=== PATIENT | female | born 1940 | race Caucasian/White ===

== ENCOUNTER 2022-01-23 08:11 | Inpatient (IN) ==
--- NOTE | 2021-12-25 15:52 | PAT Medication Instructions ---
Medication Instructions Date of Service December 25, 2021 Home Medications acetaminophen 650 mg tablet,extended release (Tylenol Arthritis Pain) 650 mg PO Q8H PRN mecobalamin (vitamin B12) 1,000 mcg chewable tablet 1,000 mcg PO UD tafluprost (PF) 0.0015 % eye drops in a dropperette (Zioptan (PF)) 1 drp ophthalmic (eye) HS aspirin 325 mg tablet 325 mg PO UD PRN biotin 1 mg tablet 1 mg PO QAM calcium 600 mg capsule 1,200 mg PO BID ASK your prescriber and surgeon aspirin 325 mg tablet 325 mg PO UD PRN STOP taking 2 weeks before surgery biotin 1 mg tablet 1 mg PO QAM DO NOT take the morning of surgery mecobalamin (vitamin B12) 1,000 mcg chewable tablet 1,000 mcg PO UD calcium 600 mg capsule 1,200 mg PO BID Take morning of surgery With a small sip of water, OTHERWISE NOTHING TO EAT OR DRINK AFTER MIDNIGHT: acetaminophen 650 mg tablet,extended release (Tylenol Arthritis Pain) 650 mg PO Q8H PRN(if needed) Take evening before surgery acetaminophen 650 mg tablet,extended release (Tylenol Arthritis Pain) 650 mg PO Q8H PRN(if needed) tafluprost (PF) 0.0015 % eye drops in a dropperette (Zioptan (PF)) 1 drp ophthalmic (eye) HS calcium 600 mg capsule 1,200 mg PO BID Other Notes If you have any questions please call us at [phone] or [phone] or [phone] or [phone]
--- NOTE | 2022-01-01 09:25 | Anesthesiology Consultation ---
Date of Service January 01, 2022 Assessment & Plan (1) Encounter for pre-operative examination: - COVID screening: Per assessment on 01/01: No known COVID-19 positive contacts or current COVID-19 related symptoms. Travel screen negative. Patient vaccinated. At surgeon discretion if preop Covid testing being done. - S/P open treatment humerus shaft with plate and screws, debridement skin (07/25/2021): Glidescope 3, ETT 7.0 at [facility] (records scanned into eOriginal). "No complications documented" - Abnormal Echo: Echo done 07/25/2021 during [facility] admission after fall. Per echo, LVEF 45-49% with large sized apical, septal, anterior septal, and anterior wall motion abnormality with hypokinesis of the segments.Per extensive review of [facility] records, does not appear cardiac evaluation done in regards to echo findings. Patient scheduled for preop cardiology evaluation 01/04 at [facility]. Chart Review Chart Review: Patient seen in Pre Admission Testing Teaching & Discussion Pre-Anesthesia Teaching/Discussion Notes: Instructed NPO after midnight before surgery,except medications with 15 cc of water. Medication instructions provided according to the PAT guidelines. History Surgery Operation Date: 01/23/22 07:30 Proposed Procedures p Robotic Laparoscopic Assisted Partial Nephrectomy - Right - Ranjeet Reyes MD Height/Weight Height: 4 ft 10 in Weight: 48.9 kg Allergies Allergy/AdvReac Type Severity Reaction Status Date / Time Iodinated Contrast Media Allergy Unknown hives Verified 12/25/21 12:19 povidone-iodine Allergy Unknown Rash Verified 12/25/21 12:19 [From Betadine] soap [From Betadine] Allergy Unknown Rash Verified 12/25/21 12:19 paper tape Allergy Unknown Rash Uncoded 12/25/21 12:19 Medications Home Medications Medication Instructions Recorded Confirmed Last Taken acetaminophen 650 mg 650 mg PO Q8H PRN Pain 11/23/20 12/25/21 Unknown tablet,extended release (Tylenol Arthritis Pain) mecobalamin (vitamin B12) 1,000 1,000 mcg PO UD 11/23/20 12/25/21 Unknown mcg chewable tablet tafluprost (PF) 0.0015 % eye drops 1 drp ophthalmic (eye) HS 11/23/20 12/25/21 Unknown in a dropperette (Zioptan (PF)) aspirin 325 mg tablet 325 mg PO UD PRN Pain 07/04/21 12/25/21 Unknown biotin 1 mg tablet 1 mg PO QAM 07/04/21 12/25/21 Unknown calcium 600 mg capsule 1,200 mg PO BID 12/25/21 12/25/21 Unknown Past Medical History Medical History Glaucoma History of concussion After fall 07/2021 - residual memory issues, continued improvement Sustained C5 osteophyte fracture vs teardrop fracture - medically managed, weaned off cervical collar per [facility] neurosurgery Osteoarthritis Poor historian Renal mass Reason for upcoming surgery Exercise / Class Metabolic Activity II 4-5 Yardwork/Stairs/Walk up hill Past Family History Family History Other Memory loss No family history of adverse response to anesthesia Past Surgical History Surgical History H/O tubal ligation History of colonoscopy History of shoulder surgery Left (metal implant in place)- ~ 2002 History of surgery on arm Right arm fracture repair (07/2021) History of wisdom tooth extraction Hx of hemorrhoidectomy Hx of tonsillectomy Past Anesthesia History No Hx of Anesthesia Complications and No Family Hx of Anesthesia Complications History of PONV No Hx of PONV and Hx of Motion Sickness Social History Smoking Status: Former smoker tobacco type: cigarettes Do You Dip or Chew Tobacco: No Smoking End Date: Quit several years ago Hx Alcohol Use: No Hx Substance Use: No substance use type: does not use Review of Systems Patient denies chest pain, shortness of breath, dyspnea on exertion, fever, chills, cough, wheezing, palpitations. Physical Exam Vital Signs VITALS BP 109/72 P 70 TEMP 97.8 SP02 96%RA RESP 18 PHYSICAL Decreased cervical extension range of motion. Full TMJ range of motion. TMD 3 finger breaths Mallampati Score 1 Dentition: several missing sides Lungs: clear throughout to auscultation Cardiac: regular rate and rhythm, no murmurs noted Spine: normal Carotid arteries: negative bruit Extremities: no edema Lab Results Anesthesia Preop Results Results Anesthesia Widget: WBC 3.93 K/ul (4.8-10.8) L 01/01/22 Hgb 11.7 g/dl (12.0-16.0) L 01/01/22 Hct 36.4 % (34.1-44.9) 01/01/22 Plt 254 K/uL (130-400) 01/01/22 Na 139 mmol/L (136-145) 01/01/22 K 3.8 mmol/L (3.5-5.1) 01/01/22 Cl 105 mmol/L (98-107) 01/01/22 CO2 27 mmol/L (21-32) 01/01/22 BUN 14 mg/dl (6-23) 01/01/22 Creat 0.84 mg/dl (0.6-1.2) 01/01/22 Glucose Level 81 mg/dl (70-99(Fasting)) 01/01/22 Urine Color Yellow 01/01/22 Urine Appearance Clear (Clear) 01/01/22 Urine pH 6.5 (4.5-7.5) 01/01/22 Urine Specific [place] 1.010 (1.000-1.030) 01/01/22 Urine Protein Negative (Negative) 01/01/22 Urine Glucose (UA) Negative (Negative) 01/01/22 Urine Ketones Negative (Negative) 01/01/22 Urine Blood Negative (Negative) 01/01/22 Urine Nitrite Negative (Negative) 01/01/22 Urine Bilirubin Negative (Negative) 01/01/22 Urine Urobilinogen Negative (Negative) 01/01/22 Urine Leukocyte Esterase Trace (Negative) H 01/01/22 Urine WBC (Auto) 1-5 /hpf (0-5) 01/01/22 Urine RBC (Auto) 0-4 /hpf (0-4) 01/01/22 Urine Hyaline Casts (Auto) 0 /lpf (0-5) 01/01/22 Urine Epithelial Cells (Auto) 0-5 /lpf (0-5) 01/01/22 Urine Bacteria (Auto) Negative (Negative) 01/01/22 Blood Type A Positive 01/01/22 Antibody Screen NEGATIVE 01/01/22 Testing Laboratory Results Low WBC- will forward preop labs to PCP for continuity of care* Electrocardiogram Date: 11/14/21 NSR at 64bpm. NS STA. Chest X-Ray Date: 07/06/21 FINDINGS: The cardiomediastinal and hilar silhouettes are within normal limits. Thumb millimeter radiodense focus suggestive of a calcified granuloma projects over the left midlung and anterior left fourth rib on the frontal view. Additionally, there is an ill-defined 1.4 cm nodular density of the left midlung seen best on the PA view. No pneumothorax, pleural effusion, airspace consolidation or overt pulmonary edema. Degenerative changes of the right shoulder and spine. Left shoulder arthroplasty. Unchanged superior endplate compression deformity of the lumbar segment, likely L3. IMPRESSION: No acute processes of the chest. Subcentimeter calcified granuloma of the left midlung with additional left lung indeterminate granuloma versus nodule measuring 1.4 cm. Correlate with prior imaging. *No acute process on preop CXR. Report forwarded to PCP to follow-up with calcif ied granuloma vs. nodule at their discretion. Chest CT done 07/24/21 noted Lobulated nodule in the upper lobe of the left lung. PCP monitoring* Echocardiogram Date: 07/25/21 LVEF 45-49%. Large sized apical, septal, anterior septal, and anterior wall motion abnormality with hypokinesis of the segments. Mildly increased concentric LV wall thickness. Mild MR. Grade 1 diastolic dysfunction. Cervical Spine Date: 09/06/21 C-spine xray Severe degenerative changes. Flexion and extension views show no evidence of abnormal motion. Other Testing CT Head/brain (07/24/21) Acute mildly displaced flexion teardrop fracture of the anterior inferior endplate of C5. Small right frontal scalp contusion, without evidence of intracranial hemorrhage or calvarial fracture. CT Chest (07/24/21) Acute, comminuted, displaced fracture of the right humeral shaft. No additional traumatic injury is seen in the chest, abdomen, and pelvis. Right renal mass, compatible with known malignancy. Lobulated nodule in the upper lobe of the left lung. Recommend correlation with prior imaging to assess stability. Indeterminate left adrenal nodule. Recommend correlation with prior imaging. COVID-19 Risk Screen Screening Information COVID-19 Screen Date: 01/01/22 Exposure 21 Days Family/Household +COVID Last 21 Days: No Exposure 10 Days Any COVID Exposure Last 10 Days: No Symptoms Last 10 Days Experienced COVID Sx Last 10 Days: No + COVID 0-90 Days COVID + in Last 0-90 Days: No
[~2022-01-23 08:11] MED LIST: DEXAMETHASONE SOD INJ 4 MG/ML VIAL ONE; GLYCOPYRROLATE 0.2 MG/ML VIAL ONE; LR 15ML/HR IV SCH; MIDAZOLAM HCL 1 MG/ML 2ML VIAL ONE; NEOSTIGMINE METHYLSULFATE 1 MG/ML 10ML VIAL ONE; ONDANSETRON INJ 2 MG/ML 2 ML VIAL ONE; PROPOFOL IV EMULSION 10 MG/ML 20 ML VIAL IV ONE; ceFAZolin 2000MG 2,000 MG/15 ML SYR IV SCH; fentaNYL citrate 100 MCG/2 ML VIAL ONE
--- NOTE | 2022-01-23 09:41 | History & Physical Report ---
Date of Service January 23, 2022 Assessment & Plan (1) Renal mass: Plan: Right, lower pole exophytic but solid and enhancing renal mass highly concerning for renal cell carcinoma She has presented today for definitive therapy in the form of surgery We will attempt partial nephrectomy but convert to radical nephrectomy if deemed unsafe Risks, benefits, expectations reviewed History of Present Illness Primary Care Provider: Domingo Stern MD 81-year-old female with a right lower pole, medial, and solid/enhancing renal mass concerning for renal cell carcinoma Presenting today for surgical removal Allergies Allergy/AdvReac Type Severity Reaction Status Date / Time Iodinated Contrast Media Allergy Unknown hives Verified 01/23/22 09:13 povidone-iodine Allergy Unknown Rash Verified 01/23/22 09:13 [From Betadine] soap [From Betadine] Allergy Unknown Rash Verified 01/23/22 09:13 Home Medications Medication Instructions Recorded Confirmed Type acetaminophen 650 mg 650 mg PO Q8H PRN Pain 11/23/20 01/23/22 History tablet,extended release (Tylenol Arthritis Pain) mecobalamin (vitamin B12) 1,000 1,000 mcg PO UD 11/23/20 01/23/22 History mcg chewable tablet tafluprost (PF) 0.0015 % eye drops 1 drp ophthalmic (eye) HS 11/23/20 01/23/22 History in a dropperette (Zioptan (PF)) aspirin 325 mg tablet 325 mg PO UD PRN Pain 07/04/21 01/23/22 History biotin 1 mg tablet 1 mg PO QAM 07/04/21 01/23/22 History calcium 600 mg capsule 1,200 mg PO BID 12/25/21 01/23/22 History Past Med/Surg History Medical History (Updated 01/23/22 @ 09:41 by Ranjeet Reyes MD) Falls Glaucoma History of concussion After fall 07/2021 - residual memory issues, continued improvement Sustained C5 osteophyte fracture vs teardrop fracture - medically managed, weaned off cervical collar per [facility] neurosurgery Osteoarthritis Poor historian Renal mass Reason for upcoming surgery Surgical History H/O tubal ligation History of colonoscopy History of shoulder surgery Left (metal implant in place)- ~ 2002 History of surgery on arm Right arm fracture repair (07/2021) History of wisdom tooth extraction Hx of hemorrhoidectomy Hx of tonsillectomy Family History Other Memory loss No family history of adverse response to anesthesia Social History Smoking Status: Former smoker Smoking End Date: Quit several years ago; Second Hand Exposure: No; Do You Dip or Chew Tobacco: No; Hx Alcohol Use: No Hx Substance Use: No Preferred Language: Thai Communication Ability: Effective Communication Ability Comment: SEE PAT COMMUNICATION NOTES Cash Management Officer Required: No Beliefs That Will Affect Care: None marital status: / Current Living Situation: Other Current Living Situation Comment: FRIEND, YAMILETH current occupational status: retired Other Information That Helps Us Care for You: No Feels Safe at Home: Yes Assistive Devices: Glasses Physical Exam Constitutional: well developed and well nourished Neck: neck nontender Respiratory: normal respiratory effort; no respiratory distress and does not use accessory muscles Cardiovascular: Rate/Rhythm: regular rate Vessels: radial pulses present Extremities: no edema Gastrointestinal (Abdomen): Inspection/Auscultation: abdomen normal to inspection Percussion/Palpation: abdomen soft; abdomen nontender and no guarding Musculoskeletal: Head/Neck/Chest: normocephalic and head atraumatic Extremities: extremities normal to inspection Skin: no rashes and no lesions Trauma: no evidence of skin trauma Neurologic: awake; not obtunded Speech / Cognition: normal speech Motor/Sensory: no tremor Psychiatric: Orientation: alert and oriented x 3 Lymphatic: no lymphadenopathy Results & Data ([facility]) Vital Signs (Past 12 Hours) Vital Signs Temp Pulse Resp BP Pulse Ox O2 Del Method 01/23/22 09:14 36.4 C L 63 18 129/59 L 96 Room Air
[2022-01-23] MEDS ORDERED: BUPIVACAINE 0.5 % 5 MG/1 ML MPF 30ML VIAL ONE (09:55)
[2022-01-23] MEDS ORDERED: fentaNYL citrate 100 MCG/2 ML VIAL ONE (11:03)
[2022-01-23] MEDS ORDERED: TISSEEL FIBRIN SEALANT 10ML TOP ONE (11:23)
[2022-01-23] MEDS ORDERED: FLOSEAL HEMOSTATIC MATRIX 10ML TOP ONE (11:23)
[2022-01-23] MEDS ORDERED: SURGICEL ABSORB HEMOSTAT 2IN X 14IN TOP ONE (11:23)
--- NOTE | 2022-01-23 12:38 | Operative Report ---
PG Post Operative Report Pre & Post Diagnosis Operation Date: 01/23/22 10:50 Pre-Op Diagnosis: Right Renal Mass Post-Op Diagnosis: Right Renal Mass I identified the patient and participated in the time-out.: Yes Procedure Operation Date: 01/23/22 10:50 Actual Procedures p Robotic Assisted Laparoscopic Nephrectomy Right(Right) - Ranjeet Reyes MD Surgeon Rnajeet Reyes MD Printer Repair Technician Juvencio Wheat Estimated Blood Loss 25 Findings Consistent with Post-Op Diagnosis Specimens right kidney Description of Procedure Patient was identified in the preoperative holding area, appropriate informed consents reviewed and completed and she was transferred to the operating suite. On arrival she received appropriate preoperative antibiotics in the form of Ancef. General anesthesia was achieved and she was placed in the left side down right side up lateral decubitus position with the bed flexed. Following sterile prep and drape a Veress needle was passed on the right upper quadrant. Tentative port sites were marked and an 8 mm port with 5 mm lens was inserted into the anticipated location of the camera port. Inspection revealed a mildly cirrhotic liver but no significant adhesive disease. Subsequent port sites were marked and placed. I was able to place 4 robotic ports in linear fashion be ginning just under the costal margin and extending down into the right lower quadrant. A 5 mm subxiphoid port was placed as was a 12 mm infraumbilical port. Space was quite limited because of the patient's short stature. I was very cautious around her cirrhotic liver and she has a very large gallbladder. I was able to retract this utilizing one of the robotic arms. I was able to incise lateral to the colon and medialize the colon entirely off of the medial aspect of the kidney. The duodenum was not impacting the hilar structures. I was able to identify the ureter below the kidney and dissect between the ureter and the psoas muscle. I was able to elevate and dissect up towards the kidney. At that time the infraumbilical mass was visualized but felt that it was not safe to proceed with a partial nephrectomy because of some of the challenges of dissection. I elected to proceed with a radical nephrectomy at that time. After exposing both artery and vein they were stapled en bloc. I continued my dissection around the superior pole of the kidney and then ultimately the lateral pole. The ureter was clipped below the kidney and transected. The robot was disconnected. A right lower quadrant incision was expanded in the specimen extracted. Fascia was closed in 2 layers utilizing 0 Vicryl. The infraumbilical port was closed with 0 Vicryl. All skin incisions were closed with 4-0 Monocryl. All wounds were infiltrated with half percent Marcaine. Dermabond was placed over all the incisions. Juvencio Haque was present and assisting throughout the case as was Yuki hampton. I attest to the content of the Intraoperative Record and any orders documented therein. Any exceptions are noted below.
[2022-01-23 13:15] LABS: Basophils # (auto) 0.02 K/uL (0-0.2); Basophils % (auto) 0.4 %; Eosinophils # (auto) 0.04 K/uL (0-0.50); Eosinophils % (auto) 0.7 %; Hematocrit (blood only) 34.3 % (34.1-44.9); Immature Granulocytes # (auto) 0.03 K/uL (0.00-0.02); Immature Granulocytes % (auto) 0.6 %; Lymphocytes # (auto) 0.56 K/uL (1.2-3.4); Lymphocytes % (auto) 10.3 %; Mean Corpuscular Hemoglobin 29.3 pg (25.0-34.0); Mean Corpuscular Hgb Conc 32.1 g/dL (32.0-36.0); Mean Corpuscular Volume 91.2 fL (80.0-100.0); Mean Platelet Volume 9.2 fL (9.4-12.3); Monocytes # (auto) 0.35 K/uL (0.24-0.82); Monocytes % (auto) 6.4 %; Neutrophils # (auto) 4.43 K/uL (1.4-6.5); Neutrophils % (auto) 81.6 %; Platelet Count 221 K/uL (130-400); RDW Coefficient of Variation 13.7 % (11.5-14.5); Red Blood Count 3.76 M/uL (3.93-5.22); White Blood Count 5.43 K/ul (4.8-10.8)
[2022-01-23 13:48] LABS: BUN Creatinine Ratio 15.3 (10-20); Calcium 8.6 mg/dl (8.5-10.1); Creatinine Clr Calc Pharmacy 32.4 ml/min; Est GFR (African American) 73.4 ml/min; Est GFR (Non-African American) 63.4 ml/min
[2022-01-23] MEDS ORDERED: PROPOFOL IV EMULSION 10 MG/ML 20 ML VIAL IV ONE (14:30)
--- NOTE | 2022-01-23 14:50 | Communication Note ---
Date of Service: January 23, 2022 Pt. had been in PACU approx. 40 minutes. RN called and stated pt may be seizing.I observed the pt. making twitching movements with her face , and clutching movements with her hands. Pt had been H/D stable w/ no hypotension or hypoxia , as her SPO2% had been in the 90's. I had obtained an ABG around 1410,w/results: PH 6.95/PaCO2-111/PaO2-135/YTK366.3/Base Deficit--8/HgBO2 Sat%- 96; After ABG's obtained I decided to intubate pt . 100 mg propofol + 100 mg succinylcholine, using Glidescope # 3 , VC's visualized,# 7.0 ETT intubated w/o incident+ ETCO2;+ B/L BS;ETT taped at 21 cm santiago;RT was called and already present at bedside w/ mec. vent. DR Wren from ICU was called and he was at bedside. Case discussed and pt was transported to ICU.
[2022-01-23] MEDS ORDERED: NOREPINEPHRINE/D5W 4 MG/250 ML IV ONE (14:55)
[2022-01-23] MEDS ORDERED: MoRPHine SULFATE 2 MG/ML CARP IV PRN (15:00)
[2022-01-23] MEDS ORDERED: oxyCODONE HCL IR 5 MG TAB (IMMEDIATE RELEASE) PO PRN ×2 (15:00)
[2022-01-23] MEDS ORDERED: MoRPHine SULFATE 4 MG/ML 1 ML CARP\\VIAL IV PRN (15:00)
[2022-01-23] MEDS ORDERED: ACETAMINOPHEN 325 MG TAB PO PRN (15:00)
[2022-01-23] MEDS ORDERED: ONDANSETRON INJ 2 MG/ML 2 ML VIAL IV PRN (15:00)
[2022-01-23 15:12] LABS: iSTAT Art Bld Gas pCO2 Correct 74 mmHg (35-46); iSTAT Art Bld Gas pH Corrected 7.122 (7.35-7.45); iSTAT Arterial Blood Gas HCO3 24 meg/L (19-24); iSTAT Arterial Blood Gas pCO2 77 mmHg (35-46); iSTAT Arterial Blood Gas pH 7.11 (7.35-7.45); iSTAT Arterial Blood Gas pO2 116 mmHg (80-95); iSTAT Arterial Blood Gas pO2 C 110; iSTAT Carbon Dioxide 27 mmol/L (24-31); iSTAT FiO2 50 %; iSTAT Hematocrit 32 % (37-47); iSTAT Hemoglobin 10.9 g/dl (12.0-16.0); iSTAT Potassium 4.3 mmol/L (3.3-5.0); iSTAT Site Art Line; iSTAT Sodium 137 mmol/L (135-144)
--- NOTE | 2022-01-23 15:31 | Procedure Note ---
Procedure Note Date of Service January 23, 2022 Note CENTRAL LINE PROCEDURE NOTE: Procedure: Central Line Placement Provider: Gonsalo Wren MD Indication: Central Drug Administration, Poor Venous Access, Multiple Lab Draws Necessary, etc. Anesthesia: 3 mlLidocaine 1% Site: Initial attempt left subclavian, converted to right internal jugular due to inability to access vein Procedure was emergent. Consent was not able to be identified due to the patient being intubated on the ventilator. No family immediately available. A time-out was completed verifying correct patient, procedure, site, positioning, and implants(s) or special equipment if applicable. Patients bilateral clavicular areas and neck was cleansed and draped in the typical sterile fashion using Chloraprep. The superficial tissue was anesthetized using 3 mL of 1% lidocaine without epinephrine. Initially an attempt to access the subclavian vein on the left but we were unable to access the vein despite repositioning and may be secondary to anatomic disruption due to the patient's prior history of shoulder replacement. I performed an ultrasound on the internal jugular on the left side but the vein was extremely small and not appropriate for cannulization. We therefore shifted attention to the right internal jugular vein. This was a larger vessel with significant respiratory collapse indicating a hypovolemic state. The Internal Jugular vein was cannulated under direct ultrasound guidance using an introducer needle on a syringe. Good venous blood return was maintained prior to removal of syringe from introducer needle. Using Seldinger Technique, a guide wire was advanced through the introducer needle without resistance. The introducer needle was removed and ultrasound images were obtained of the guide wire within the Internal Jugular Vein. A small incision was made in penetrating fashion at the guide wire insertion site utilizing an 11 blade scalpel. The dilator was advanced to the vessel without resistance. The dilator was exchanged for the triple lumen catheter which was advanced into the vessel without resistance. The guide wire was removed intact from the catheter without issue. Claves were placed on each catheter tip with confirmation of good blood flow from each lumen. Each port was easily flushed with sterile saline. The catheter was placed at 20 cm and sut[address] in place. BioPatch was applied to the catheter and a sterile Tegaderm dressing was applied over the catheter with careful attention to sterility. Patient tolerated procedure well. No immediate complications were met. Post procedure x-ray pending Estimated blood loss: 5 mL. The patient tolerated the procedure well Coding CPT Codes Tubes, Drains, and Vasc Access - Tubes, Drains, and Vasc Access: [id number] Place catheter in vein superior or inferior vena cava ([id number]) [facility] Procedure Codes (Charges) Tubes, Drains, and Vasc Access Procedure 1: Tubes, Drains, and Vasc Access: [id number] Place catheter in vein superior or inferior vena cava
[2022-01-23] MEDS ORDERED: LACTATED RINGER'S 2,000 ML IV ONE (15:32)
[2022-01-23 15:34] LABS: iSTAT Arterial Blood Gas HCO3 24 meg/L (19-24); iSTAT Arterial Blood Gas pCO2 111 mmHg (35-46); iSTAT Arterial Blood Gas pH 6.95 (7.35-7.45); iSTAT Arterial Blood Gas pO2 135 mmHg (80-95); iSTAT Carbon Dioxide 28 mmol/L (24-31); iSTAT Hematocrit 38 % (37-47); iSTAT Hemoglobin 12.9 g/dl (12.0-16.0); iSTAT Potassium 4.9 mmol/L (3.3-5.0); iSTAT Sodium 140 mmol/L (135-144)
[2022-01-23] MEDS ORDERED: ICU Protocol for HYPERglycemia PRN (15:37)
[2022-01-23] MEDS ORDERED: STAT IV Infusion **Titration per Protocol STA (15:37)
[2022-01-23] MEDS ORDERED: PROPOFOL BOLUS FROM BAG IV PRN (15:37)
--- NOTE | 2022-01-23 15:38 | Critical Care Consultation ---
Date of Consultation January 23, 2022 Assessment & Plan (1) Hypercapnic respiratory failure: (2) Renal mass: (3) Encephalopathy: (4) Hypotension: Plan Impression: 81-year-old female with presumptive COPD although PFTs are not available to review admitted today for elective nephrectomy for exophytic renal mass. In the PACU the patient became obtunded and was found to have hypercarbic respiratory failure with questionable seizure activity necessitating intubation mechanical ventilation. She was hypotensive on arrival to the ICU necessitating pressors. Recommendations: 1. Neurologic: Encephalopathy likely secondary to hypercarbic respiratory failure. See comments below. The twitching activity noted by the PACU nurses could be explained by the elevated PCO2, nevertheless we will obtain a noncontrast CT of the head and EEG to exclude potential alternative etiologies. Hold on antiepileptic medications for now but will use propofol on an as-needed basis to keep the patient sedated. Analgesia per urology. 2. Cardiovascular: Hypotension: Suspect hypovolemia based on ultrasound appearance of the vein on insertion of central line. Continue replacement of effective circulating volume with crystalloid for now. Wean pressors as tolerated. Reviewed echocardiogram which showed preserved EF with concentric LVH and mild valvular abnormalities. Depending on clinical response, additional evaluation may be warranted. 3. Respiratory: Hypercarbic respiratory failure, unclear etiology. The patient may have had underlying CO2 retention at baseline, however CO2 levels on chemistry panels were routinely between 25 and 27 arguing against this. She may have had some residual effects from the anesthesia precipitating hypercarbia. For now we will continue mechanical ventilation with tidal volume target and 6 cc/kg ideal body weight and follow-up blood gas. We will use bronchodilators on an as-needed basis. Hold on steroids for now. Unclear if her hypercarbia was the primary presenting event or manifestation of other underlying potential neurological issues as noted above. 4. GI: We will keep n.p.o. for now. Await follow-up labs. If the patient has difficulty liberating from mechanical ventilator in the next 24 hours, consideration for enteric nutrition would be appropriate. PPI will be put in place for stress ulcer prophylaxis. 5. ID: No current issues from my standpoint. Defer to urology as to whether or not continued antibiotics postoperatively required for her nephrectomy. 6. Renal: Status post nephrectomy. Follow-up labs are pending. Patient had a normal creatinine preoperatively. Acid-base status addressed above and respirat ory. Will follow electrolytes and replete as needed. 7. Endocrine: Glycemic control per protocol. 8. Heme-onc: Await follow-up labs. DVT prophylaxis will be initiated with subcu heparin. Additional recommendations will be based on results of the patient's laboratory studies and additional evaluation. The patient is critically ill at this point time. A total of 82 minutes critical care time was spent in evaluation management stabilization of this patient exclusive of procedures. Thanks for the opportunity precipitate in the care of this patient. Feel free to contact us with questions. History of Present Illness Attending Physician: Ranjeet Reyes MD History of Present Illness Asked by anesthesia, medicine, and urology to assist in evaluation of this patient with hypercarbic respiratory failure, questionable seizure activity post nephrectomy. History is obtained from review the medical record. Patient is unable to provide any additional history as she is intubated on the ventilator. The patient is an 81-year-old female who was found to have a right lower pole exophytic mass concerning for renal cell carcinoma. She underwent radical nephrectomy today. Postoperatively, the patient was noted to have an altered sensorium and exhibits some shaking-like movements. Blood gas was obtained which demonstrated severe hypercarbic respiratory failure with a PCO2 of 111. She was reintubated by anesthesia. The patient was brought to the ICU. She was hypotensive. A central line was placed. Please refer to separate procedure notes. She was initiated on norepinephrine and administered additional small volume boluses. The patient according to her outpatient records at [facility] has a history of osteoporosis, prior tobacco abuse, glaucoma, stage III kidney disease, and recent admissions for lower GI bleed felt to be diverticular in nature as well as a fall with a teardrop C5 fracture. There was some concern about potential cardiomyopathy however the patient was seen in the cardiology clinic at [facility]. Follow-up echocardiogram showed an EF of 55 to 60% with concentric LV hypertrophy. Right ventricular systolic function was normal. Moderate MR and mild TR were noted. Allergies Allergy/AdvReac Type Severity Reaction Status Date / Time Iodinated Contrast Media Allergy Unknown hives Verified 01/23/22 09:13 povidone-iodine Allergy Unknown Rash Verified 01/23/22 09:13 [From Betadine] soap [From Betadine] Allergy Unknown Rash Verified 01/23/22 09:13 Home Medications Medication Instructions Recorded Confirmed Type acetaminophen 650 mg 650 mg PO Q8H PRN Pain 11/23/20 01/23/22 History tablet,extended release (Tylenol Arthritis Pain) mecobalamin (vitamin B12) 1,000 1,000 mcg PO UD 11/23/20 01/23/22 History mcg chewable tablet tafluprost (PF) 0.0015 % eye drops 1 drp ophthalmic (eye) HS 11/23/20 01/23/22 History in a dropperette (Zioptan (PF)) aspirin 325 mg tablet 325 mg PO UD PRN Pain 07/04/21 01/23/22 History biotin 1 mg tablet 1 mg PO QAM 07/04/21 01/23/22 History calcium 600 mg capsule 1,200 mg PO BID 12/25/21 01/23/22 History Patient History Medical History (Updated 01/23/22 @ 15:43 by Gonsalo Wren MD) Falls Glaucoma History of concussion After fall 07/2021 - residual memory issues, continued improvement Sustained C5 osteophyte fracture vs teardrop fracture - medically managed, weaned off cervical collar per [facility] neurosurgery Osteoarthritis Poor historian Renal mass Reason for upcoming surgery Surgical History H/O tubal ligation History of colonoscopy History of shoulder surgery Left (metal implant in place)- ~ 2002 History of surgery on arm Right arm fracture repair (07/2021) History of wisdom tooth extraction Hx of hemorrhoidectomy Hx of tonsillectomy Family History Other Memory loss No family history of adverse response to anesthesia Social History Smoking Status: Former smoker Smoking End Date: Quit several years ago; Second Hand Exposure: No; Do You Dip or Chew Tobacco: No; Hx Alcohol Use: No Hx Substance Use: No Preferred Language: Bahamian Communication Ability: Effective Communication Ability Comment: SEE PAT COMMUNICATION NOTES Quality Assurance Intern Required: No Beliefs That Will Affect Care: None marital status: / Current Living Situation: Other Current Living Situation Comment: FRIEND, BILL current occupational status: retired Other Information That Helps Us Care for You: No Feels Safe at Home: Yes Assistive Devices: Glasses Review of Systems Review of Systems: Unobtainable due to endotracheal tube Physical Exam Constitutional: + thin and + mechanically ventilated Neck: trachea midline, no thyromegaly Respiratory: Breath sounds are diminished bilaterally. Cardiovascular: RRR, no murmur, no edema Gastrointestinal (Abdomen): normal bowel sounds, soft, nontender, no hepat osplenomegaly Musculoskeletal: Extremities: extremities normal to inspection Skin: no rashes, warm and dry Neurologic: Nonfocal exam Lymphatic: no cervical lymphadenopathy Results & Data Results & Data ([facility]) Vital Signs (Past 12 Hours) Vital Signs Temp Pulse Resp BP BP Pulse Ox O2 Del Method 01/23/22 14:40 123 H 23 69/48 L 98/56 L 97 Mechanical Vent 01/23/22 14:30 124 H 20 75/47 L 103/52 L 100 Mechanical Vent 01/23/22 14:20 134 H 27 H 110/60 141/71 H 100 Mechanical Vent, Non- rebreather 01/23/22 14:10 36.3 C L 144 H 38 H 115/61 137/91 96 Non-rebreather 01/23/22 13:50 130 H 38 H 133/71 130/110 H 100 Oxymask 01/23/22 13:40 121 H 44 H 116/54 L 102/59 L 100 Oxymask 01/23/22 13:30 108 H 36 H 113/55 L 149/56 H 100 Oxymask 01/23/22 13:20 98 H 24 135/72 98 Oxymask 01/23/22 14:00 147 H 55 H 129/39 L 96/50 L 78 L Non-rebreather 01/23/22 13:20 98 H 24 135/72 98 Oxymask 01/23/22 13:10 94 H 24 115/67 99 Oxymask 01/23/22 13:00 96 H 20 110/60 98 Oxymask 01/23/22 12:50 97 H 18 92/87 L 99 Oxymask 01/23/22 12:40 36.0 C L 105 H 12 97/66 L 98 Oxymask 01/23/22 09:14 36.4 C L 63 18 129/59 L 96 Room Air O2 Flow Rate 01/23/22 14:40 15 01/23/22 14:30 01/23/22 14:20 01/23/22 14:10 15 01/23/22 13:50 15 01/23/22 13:40 15 01/23/22 13:30 15 01/23/22 13:20 15 01/23/22 14:00 15 01/23/22 13:20 15 01/23/22 13:10 7 01/23/22 13:00 7 01/23/22 12:50 7 01/23/22 12:40 7 01/23/22 09:14 Critical Care Results & Data Vital Signs (Past 12 Hours) Vital Signs Temp Pulse Resp BP BP Pulse Ox O2 Del Method 01/23/22 14:40 123 H 23 69/48 L 98/56 L 97 Mechanical Vent 01/23/22 14:30 124 H 20 75/47 L 103/52 L 100 Mechanical Vent 01/23/22 14:20 134 H 27 H 110/60 141/71 H 100 Mechanical Vent, Non- rebreather 01/23/22 14:10 36.3 C L 144 H 38 H 115/61 137/91 96 Non-rebreather 01/23/22 13:50 130 H 38 H 133/71 130/110 H 100 Oxymask 01/23/22 13:40 121 H 44 H 116/54 L 102/59 L 100 Oxymask 01/23/22 13:30 108 H 36 H 113/55 L 149/56 H 100 Oxymask 01/23/22 13:20 98 H 24 135/72 98 Oxymask 01/23/22 14:00 147 H 55 H 129/39 L 96/50 L 78 L Non-rebreather 01/23/22 13:20 98 H 24 135/72 98 Oxymask 01/23/22 13:10 94 H 24 115/67 99 Oxymask 01/23/22 13:00 96 H 20 110/60 98 Oxymask 01/23/22 12:50 97 H 18 92/87 L 99 Oxymask 01/23/22 12:40 36.0 C L 105 H 12 97/66 L 98 Oxymask 01/23/22 09:14 36.4 C L 63 18 129/59 L 96 Room Air O2 Flow Rate 01/23/22 14:40 15 01/23/22 14:30 01/23/22 14:20 01/23/22 14:10 15 01/23/22 13:50 15 01/23/22 13:40 15 01/23/22 13:30 15 01/23/22 13:20 15 01/23/22 14:00 15 01/23/22 13:20 15 01/23/22 13:10 7 01/23/22 13:00 7 01/23/22 12:50 7 01/23/22 12:40 7 01/23/22 09:14 Lab & Micro Results (Past 24 Hours) RBC 3.76 M/uL (3.93-5.22) L 01/23/22 WBC 5.43 K/ul (4.8-10.8) 01/23/22 Hgb 11.0 g/dl (12.0-16.0) L 01/23/22 Hct 34.3 % (34.1-44.9) 01/23/22 MCV 91.2 fL (80.0-100.0) 01/23/22 MCH 29.3 pg (25.0-34.0) 01/23/22 MCHC 32.1 g/dL (32.0-36.0) 01/23/22 RDW Standard Deviation 46.0 fL (36.4-46.3) 01/23/22 RDW Coefficient of Variation 13.7 % (11.5-14.5) 01/23/22 Plt Count 221 K/uL (130-400) 01/23/22 MPV 9.2 fL (9.4-12.3) L 01/23/22 Neutrophils (%) (Auto) 81.6 % 01/23/22 Lymphocytes (%) (Auto) 10.3 % 01/23/22 Monocytes # (Auto) 0.35 K/uL (0.24-0.82) 01/23/22 Eosinophils # (Auto) 0.04 K/uL (0-0.50) 01/23/22 Immature Granulocyte % (Auto) 0.6 % 01/23/22 Neutrophils # (Auto) 4.43 K/uL (1.4-6.5) 01/23/22 Lymphocytes # (Auto) 0.56 K/uL (1.2-3.4) L 01/23/22 Monocytes # (Auto) 0.35 K/uL (0.24-0.82) 01/23/22 Eosinophils # (Auto) 0.04 K/uL (0-0.50) 01/23/22 Basophils # (Auto) 0.02 K/uL (0-0.2) 01/23/22 Immature Granulocyte # (Auto) 0.03 K/uL (0.00-0.02) H 01/23 Na 139 mmol/L (136-145) 01/23/22 K 4.0 mmol/L (3.5-5.1) 01/23/22 Cl 109 mmol/L (98-107) H 01/23/22 CO2 25 mmol/L (21-32) 01/23/22 Anion Gap 5 (3-11) 01/23/22 BUN 13 mg/dl (6-23) 01/23/22 Creatinine 0.85 mg/dl (0.6-1.2) 01/23/22 Estimated GFR ( Amer) 73.4 ml/min 01/23/22 Estimated GFR (Non-Af Amer) 63.4 ml/min 01/23/22 BUN/Creatinine Ratio 15.3 (10-20) 01/23/22 Glu 141 mg/dl (70-99(Fasting)) H 01/23/22 Ca 8.6 mg/dl (8.5-10.1) 01/23/22 Calcium Level 8.6 mg/dl (8.5-10.1) 01/23/22 13:02 Mio Test NA 01/23/22 14:41 Diagnostic Findings (Past 24 Hours) Chest X-Ray 01/23/22 15:20 XR chest 1V portable HISTORY: 81 years-old Female intubation. central line placement acute respiratory failure COMPARISON: 07/06/2021 TECHNIQUE: Supine AP view of the chest FINDINGS: Cardiomediastinal and hilar silhouettes are within normal limits. Right IJ central venous catheter distal tip projects over the right atrium. Distal tip of enteric tube projects inferiorly outside the [id number], likely within the stomach. Endotracheal tube overlies the midline, 4.4 cm superior to the mervat. Atherosclerosis of the aorta. No pneumothorax, pleural effusion, airspace consolidation or overt pulmonary edema. Calcified granulomata of the left lung. Degenerative changes of the right shoulder and spine. ORIF hardware of the right humerus. Right shoulder rotator cuff calcific tendinosis. Left shoulder arthroplasty. IMPRESSION: 1. Lines and tubes as above. 2. No acute processes of the chest. 3. No pneumothorax. ACT 112: Negative or not required by law. The above report was generated using voice recognition software. It may contain grammatical, syntax or spelling errors. Electronically signed by: Nasim Rubio M.D. 01/23/2022 3:39 PM I & O Totals 24 Hours 01/22/22 01/23/22 01/24/22 06:59 06:59 06:59 Intake Total 1300 / 1300 Output Total Balance 1274 / 1274 Cumulative 11/21/21 10:08 thru 01/23/22 12:40 Intake Total 1300 Output Total 26 Balance 1274 RT Ventilator Mngmt (Last Documented) Ventilator Ordered Settings Respiratory Rate 23 01/23/22 14:40 Ventilator - PT Measurements Respiratory Rate 23 Coding Level of Care Code Critical Care 1st 30-74 mins Diagnoses Hypercapnic respiratory failure J96.92 Renal mass N28.89 Encephalopathy G93.40 Hypotension I95.9
--- NOTE | 2022-01-23 15:40 | XRay Report ---
XR chest 1V portable HISTORY: 81 years-old Female intubation. central line placement acute respiratory failure COMPARISON: 07/06/2021 TECHNIQUE: Supine AP view of the chest FINDINGS: Cardiomediastinal and hilar silhouettes are within normal limits. Right IJ central venous catheter di stal tip projects over the right atrium. Distal tip of enteric tube projects inferiorly outside the f [id number], likely within the stomach. Endotracheal tube overlies the midline, 4.4 cm superior to t he mervat. Atherosclerosis of the aorta. No pneumothorax, pleural effusion, airspace consolidation or overt pulmonary edema. Calcified granulo davis of the left lung. Degenerative changes of the right shoulder and spine. ORIF hardware of the rig ht humerus. Right shoulder rotator cuff calcific tendinosis. Left shoulder arthroplasty. IMPRESSION: 1. Lines and tubes as above. 2. No acute processes of the chest. 3. No pneumothorax. ACT 112: Negative or not required by law. The above report was generated using voice recognition software. It may contain grammatical, syntax o r spelling errors. Electronically signed by: Nasim Rubio M.D. 01/23/2022 3:39 PM
[2022-01-23 15:47] LABS: Hematocrit (blood only) 31.5 % (34.1-44.9); Hemoglobin 10.1 g/dl (12.0-16.0); Mean Corpuscular Hemoglobin 29.1 pg (25.0-34.0); Mean Corpuscular Hgb Conc 32.1 g/dL (32.0-36.0); Mean Corpuscular Volume 90.8 fL (80.0-100.0); Platelet Count 226 K/uL (130-400); RDW Coefficient of Variation 13.6 % (11.5-14.5); RDW Standard Deviation 45.4 fL (36.4-46.3); Red Blood Count 3.47 M/uL (3.93-5.22); White Blood Count 12.35 K/ul (4.8-10.8)
[2022-01-23] MEDS ORDERED: INFLUENZA VACCINE HIGH DOSE PF 65+ 0.7 ML SYR IM ONE (15:52)
[2022-01-23 15:59] LABS: Partial Thromboplastin Ratio 0.8; Partial Thromboplastin Time 21.7 Seconds (21.0-31.0); Prothrombin Time 10.4 Seconds (9.0-12.0)
--- NOTE | 2022-01-23 16:04 | Anesthesiology Progress Note ---
Date of Service January 23, 2022 Anesthesia Post Procedure Vital Signs Vital Signs: Temp Pulse Resp BP BP Pulse Ox O2 Del Method 01/23/22 14:40 123 H 23 69/48 L 98/56 L 97 Mechanical Vent 01/23/22 14:30 124 H 20 75/47 L 103/52 L 100 Mechanical Vent 01/23/22 14:20 134 H 27 H 110/60 141/71 H 100 Mechanical Vent, Non- rebreather 01/23/22 14:10 36.3 C L 144 H 38 H 115/61 137/91 96 Non-rebreather 01/23/22 13:50 130 H 38 H 133/71 130/110 H 100 Oxymask 01/23/22 13:40 121 H 44 H 116/54 L 102/59 L 100 Oxymask 01/23/22 13:30 108 H 36 H 113/55 L 149/56 H 100 Oxymask 01/23/22 13:20 98 H 24 135/72 98 Oxymask 01/23/22 14:00 147 H 55 H 129/39 L 96/50 L 78 L Non-rebreather 01/23/22 13:20 98 H 24 135/72 98 Oxymask 01/23/22 13:10 94 H 24 115/67 99 Oxymask 01/23/22 13:00 96 H 20 110/60 98 Oxymask 01/23/22 12:50 97 H 18 92/87 L 99 Oxymask 01/23/22 12:40 36.0 C L 105 H 12 97/66 L 98 Oxymask 01/23/22 09:14 36.4 C L 63 18 129/59 L 96 Room Air O2 Flow Rate 01/23/22 14:40 15 01/23/22 14:30 01/23/22 14:20 01/23/22 14:10 15 01/23/22 13:50 15 01/23/22 13:40 15 01/23/22 13:30 15 01/23/22 13:20 15 01/23/22 14:00 15 01/23/22 13:20 15 01/23/22 13:10 7 01/23/22 13:00 7 01/23/22 12:50 7 01/23/22 12:40 7 01/23/22 09:14 Transfer of Care Handoff Completed per policy Notes Mental Status: see notes below Nausea / Vomiting: adequately controlled Pain: adequately controlled Airway Patency, RR, SpO2: see Notes below BP & HR: stable & adequate Hydration State: see Notes below Anesthetic Complications: see Notes below Notes: Patient w/hypercarbic respiratory failure intubated in Pacu w/o incident. Pt was manifesting seizure-like activity. ABG was showing hypercarbia and respiratory acidosis on ABG.Pt was oxygenating adequately.Mechanical ventilation was instituted.Pt was then transferred to ICU. Further care was provided by Assistant Grocery Store Manager,DR Wren,after consultation.
[2022-01-23 16:06] LABS: Albumin Globulin Ratio 1.4 (0.9-2); Albumin Level 3.2 gm/dl (3.4-5.0); BUN Creatinine Ratio 13.7 (10-20); Bilirubin,Total 0.3 mg/dl (0.2-1.0); Calcium 8.3 mg/dl (8.5-10.1); Est GFR (African American) 58.9 ml/min; Est GFR (Non-African American) 50.8 ml/min; Globulin 2.3 gm/dl (2.5-4.0); Potassium 3.9 mmol/L (3.5-5.1); Total Protein 5.5 gm/dl (6.0-8.3)
[2022-01-23] MEDS: NOREPINEPHRINE/D5W 4 MG/250 ML PLCT IV SCH ×3 (16:13→22:08)
--- NOTE | 2022-01-23 16:20 | XRay Report ---
XR chest 1V portable CLINICAL HISTORY: Post intubation X-ray TECHNIQUE: Single frontal radiograph of the chest was obtained. Comparison: Comparison is made to chest radiograph 07/06/2021 FINDINGS: Endotracheal tube terminates 45 mm from the mervat. Calcified aortic knob is seen. Redemonstration of pulmonary densities in the left lung. No evidence of pleural effusion or pneumothorax. IMPRESSION: 1. Satisfactory position of endotracheal tube. 2. Redemonstration of left pulmonary densities. ACT 112: Negative or not required by law. Electronically signed by: Adelso Woodard M.D. 01/23/2022 4:19 PM
[2022-01-23 16:23] LABS: iSTAT Art Bld Gas pCO2 Correct 30 mmHg (35-46); iSTAT Art Bld Gas pH Corrected 7.454 (7.35-7.45); iSTAT Arterial Blood Gas HCO3 21 meg/L (19-24); iSTAT Arterial Blood Gas pCO2 30 mmHg (35-46); iSTAT Arterial Blood Gas pH 7.45 (7.35-7.45); iSTAT Arterial Blood Gas pO2 191 mmHg (80-95); iSTAT Arterial Blood Gas pO2 C 189; iSTAT Carbon Dioxide 22 mmol/L (24-31); iSTAT FiO2 50 %; iSTAT Hematocrit 29 % (37-47); iSTAT Hemoglobin 9.9 g/dl (12.0-16.0); iSTAT Potassium 3.7 mmol/L (3.3-5.0); iSTAT Site Art Line; iSTAT Sodium 138 mmol/L (135-144)
--- NOTE | 2022-01-23 16:32 | CT Scan Report ---
HEAD CT NONCONTRAST CT DOSE: 690.05 mGycm HISTORY: altered mental status, possible seizure TECHNIQUE: Multiaxial CT images of the head were performed without the use of intravenous contrast. A utomated exposure control was utilized for this study. A dose lowering technique was utilized adheri ng to the principles of ALARA. Comparison: None. Findings: The paranasal sinuses and mastoid air cells are clear. The calvarium and skull base are int act. There is no mass, hematoma, midline shift, acute infarct. White matter hypodensity is nonspecifi c but suggestive of microvascular ischemic change. The ventricles and sulci demonstrate mild age-rela stacy involutional changes. Impression: No acute intracranial abnormality. ACT 112: Negative or not required by law. Electronically signed by: Karlos Amanda M.D. 01/23/2022 4:30 PM
[2022-01-23] MEDS: ceFAZolin 2000MG 2,000 MG/15 ML SYR IV SCH ×2 (16:41→22:18)
[2022-01-23] MEDS: LACTATED RINGER'S 1,000 ML IV SCH ×2 (16:41→22:37)
[2022-01-23] MEDS ORDERED: NON-FORMULARY MEDICATION (Calcium 600 mg Capsule) PO SCH (21:00)
[2022-01-23] MEDS ORDERED: DOCUSATE SODIUM 100 MG CAP PO SCH (21:00)
[2022-01-23] MEDS ORDERED: MIDAZOLAM HCL 5 MG/ML 1 ML VIAL ONE (21:58)
[2022-01-23] MEDS ORDERED: MIDAZOLAM HCL 5 MG/ML 1 ML VIAL IV STA (22:06)
[2022-01-23] MEDS: propofoL 1,000 MG/100 ML VIAL IV SCH (22:07)
[2022-01-23] MEDS ORDERED: levETIRAcetam 1,000 MG in 0.9 % SODIUM CHLORIDE 100 ML IV STA (22:08)
[2022-01-23] MEDS ORDERED: levETIRAcetam 1,500 MG in 0.9 % SODIUM CHLORIDE 100 ML IV STA (22:19)
--- NOTE | 2022-01-23 22:28 | Communication Note ---
Date of Service: January 23, 2022- 2199 Called to bedside for re-occurrence of seizure like activity. Patient started with left arm twitching at approx 2150, this progressed to bilateral upper arm twitching and jerking, that also involved facial twitching and jerking and right leg twitching. These movements were repetitive and rhythmic. There was no eye deviation or biting on the ETT tube. She was given 5mg of Versed while her Propofol was being hung. The 5mg of Versed immediately stopped the above at 2159. This is the patient's second episode of this today, she was not prev iously on any other empiric anti-seizure medications. Initiated 1.5 GM of Keppra IV now, wean down propofol (currently 15mcg/kg/min), ABG with PH 7.23, CO2 39, HCO3 18. Will repeat BMP now and lactate. Rate adjusted on Ventilator to 18 with goal of normalizing co2. She is oxygenating well. Her ETCo2 is 33 with a delta of 6 so will use this as guide for CO2 range. Vasopressor support for hypotension and wean off as able. Discussed with Neurology coagulation operator in regards to EEG now. Does recommend empiric therapy as above with 1500 mg Keppra load and then 1GM q12 hours, which has been done. No need for urgent EEG endorsed. Will obtain MRI in the morning with seizure protocol as she has reported allergy of hives with contrast. As this will currently not change therapy. As her mentation has only minimally improved from earlier today and repeat seizure like activity, this is likely cause of encephalopathy and hypercarbia earlier.
[2022-01-23 22:37] LABS: iSTAT Art Bld Gas pCO2 Correct 39 mmHg (35-46); iSTAT Art Bld Gas pH Corrected 7.234 (7.35-7.45); iSTAT Arterial Blood Gas HCO3 17 meg/L (19-24); iSTAT Arterial Blood Gas pCO2 40 mmHg (35-46); iSTAT Arterial Blood Gas pH 7.23 (7.35-7.45); iSTAT Arterial Blood Gas pO2 115 mmHg (80-95); iSTAT Arterial Blood Gas pO2 C 113; iSTAT Carbon Dioxide 18 mmol/L (24-31); iSTAT FiO2 30 %; iSTAT Hematocrit 31 % (37-47); iSTAT Hemoglobin 10.5 g/dl (12.0-16.0); iSTAT Potassium 3.5 mmol/L (3.3-5.0); iSTAT Site Art Line; iSTAT Sodium 137 mmol/L (135-144)
[2022-01-23 23:10] LABS: BUN Creatinine Ratio 11.2 (10-20); Calcium 7.9 mg/dl (8.5-10.1); Creatinine Clr Calc Pharmacy 24.5 ml/min; Est GFR (African American) 46.1 ml/min; Est GFR (Non-African American) 39.7 ml/min; Potassium 3.6 mmol/L (3.5-5.1)
[2022-01-23] MEDS ORDERED: POTASSIUM CHLORIDE 20 MEQ/15 ML UDC PO STA (23:16)
[2022-01-23] MEDS ORDERED: LACTATED RINGER'S 500 ML IV ONE (23:22)
[2022-01-23 23:24] LABS: iSTAT Art Bld Gas pCO2 Correct 36 mmHg (35-46); iSTAT Art Bld Gas pH Corrected 7.299 (7.35-7.45); iSTAT Arterial Blood Gas HCO3 18 meg/L (19-24); iSTAT Arterial Blood Gas pCO2 37 mmHg (35-46); iSTAT Arterial Blood Gas pH 7.29 (7.35-7.45); iSTAT Arterial Blood Gas pO2 91 mmHg (80-95); iSTAT Arterial Blood Gas pO2 C 89; iSTAT Carbon Dioxide 19 mmol/L (24-31); iSTAT FiO2 30 %; iSTAT Hematocrit 29 % (37-47); iSTAT Hemoglobin 9.9 g/dl (12.0-16.0); iSTAT Potassium 3.5 mmol/L (3.3-5.0); iSTAT Site Art Line; iSTAT Sodium 138 mmol/L (135-144)
[2022-01-23] MEDS ORDERED: ICU MODERATE HYPERGLYCEMIA PROTOCOL ONE (23:28)
[2022-01-23] MEDS ORDERED: PHARMACY GLYCEMIC MGMT CONSULT PRN (23:42)
[2022-01-23] MEDS ORDERED: LANTUS PER UNIT CHARGE SQ ONE (23:45)
[2022-01-24] MEDS: INSULIN ASPART PER UNIT SC SCH ×4 (00:01→18:28)
[2022-01-24 05:39] LABS: iSTAT Art Bld Gas pCO2 Correct 38 mmHg (35-46); iSTAT Art Bld Gas pH Corrected 7.362 (7.35-7.45); iSTAT Arterial Blood Gas HCO3 22 meg/L (19-24); iSTAT Arterial Blood Gas pCO2 38 mmHg (35-46); iSTAT Arterial Blood Gas pH 7.36 (7.35-7.45); iSTAT Arterial Blood Gas pO2 97 mmHg (80-95); iSTAT Arterial Blood Gas pO2 C 98; iSTAT Carbon Dioxide 23 mmol/L (24-31); iSTAT FiO2 30 %; iSTAT Hematocrit 31 % (37-47); iSTAT Hemoglobin 10.5 g/dl (12.0-16.0); iSTAT Potassium 4.5 mmol/L (3.3-5.0); iSTAT Site Art Line; iSTAT Sodium 138 mmol/L (135-144)
[2022-01-24 06:13] LABS: Basophils # (auto) 0.01 K/uL (0-0.2); Basophils % (auto) 0.1 %; Hematocrit (blood only) 29.6 % (34.1-44.9); Hemoglobin 9.8 g/dl (12.0-16.0); Immature Granulocytes # (auto) 0.01 K/uL (0.00-0.02); Immature Granulocytes % (auto) 0.1 %; Lymphocytes # (auto) 0.36 K/uL (1.2-3.4); Mean Corpuscular Hemoglobin 29.3 pg (25.0-34.0); Mean Corpuscular Hgb Conc 33.1 g/dL (32.0-36.0); Mean Corpuscular Volume 88.6 fL (80.0-100.0); Mean Platelet Volume 9.3 fL (9.4-12.3); Monocytes # (auto) 0.78 K/uL (0.24-0.82); Monocytes % (auto) 8.8 %; Neutrophils # (auto) 7.74 K/uL (1.4-6.5); Platelet Count 199 K/uL (130-400); RDW Coefficient of Variation 13.7 % (11.5-14.5); RDW Standard Deviation 44.7 fL (36.4-46.3); Red Blood Count 3.34 M/uL (3.93-5.22)
[2022-01-24 06:49] LABS: BUN Creatinine Ratio 14.3 (10-20); Creatinine Clr Calc Pharmacy 27.6 ml/min; Est GFR (African American) 52.6 ml/min; Est GFR (Non-African American) 45.4 ml/min; Potassium 4.5 mmol/L (3.5-5.1)
--- NOTE | 2022-01-24 07:21 | Pharmacy Report ---
Pharmacy Glycemic Short Note 2 - Date of Service January 24, 2022 - Glycemic Short BSG Results (Last 24 hours): 01/23/22 01/23/22 01/23/22 13:02 15:37 22:31 Glucose 141 H 211 H 183 H POC Glucose 01/23/22 01/24/22 01/24/22 22:36 05:25 05:50 Glucose 139 H POC Glucose 168 H 133 H OUTPATIENT ANTIDIABETIC REGIMEN: * A1c 01/23/22 = 5.3% ASSESSMENT: * 81 yo female admitted yesterday for elective nephrectomy, became obtunded in PACU, hypercarbic respiratory failure with questionable seizure activity necessitating intubation mechanical ventilation and transfer to ICU. * Patient received 8mg IV Dexamethasone preop, gave Lantus 5 units x 1 dose last night, and started on Q6H CF/CR. * Patient has had 6 units of insulin over the last 24 hours, and blood sugars are within goal. No further basal at this time. * No hx of DM, likely able to DC insulin soon, unless new factors arise for insulin resistance. PLAN FOR INPATIENT GLYCEMIC CONTROL: * Basal insulin * Lantus 5 units x 1 HS on 01/23 to cover steroids * Bolus insulin * NovoLog per scale ACHS or Q6hrs while NPO * Goal Range: Low 110 mg/dL - High 140 mg/dL * Correction Factor: 45 mg/dL/unit * Nutritional / Prandial insulin per carb ratio of 1 unit per 15 grams CHO consumed
--- NOTE | 2022-01-24 08:03 | Critical Care Progress Note ---
Date of Service January 24, 2022 Assessment & Plan (1) Hypercapnic respiratory failure: Plan: Reason Critically Ill: 81-year-old female who was admitted to the hospital for elective laparoscopic nephrectomy (suspected renal cell carcinoma) and transferred to the ICU for postoperative acute hypercapnic respiratory failure, seizure-like activity. Sedation: Keppra, propofol Analgesia: None Neuro Encephalopathy/seizure: Unclear etiology. Patient has no prior history of seizure disorder, nor was she on any seizure-like or epileptiform threshold- lowering medications. Per neurology, evidence of moderate nonspecific encephalopathy on EEG. No epileptiform activity seen. * Neurology recs: Continue Keppra 1000 mg IV every 12 hours * MRI brain ordered. Cardiac Hypotension: Acute BP drop overnight during seizure-like episode, requiring brief pressor support with norepinephrine. Now resolved and off pressor support. MAP at last check >100. Patient has no history of hypertension nor is she on antihypertensives. * Trend vitals Respiratory Acute hypercapnic respiratory failure: On mechanical ventilation sedated with propofol, Keppra. VBG obtained on transfer to ICU suggested primary respiratory acidosis, without compensatory process. Hypercapnia, and acidosis have since been corrected. * Trial of extubation after MRI brain GI * Stress ulcer prophylaxis: IV Pantoprazole 40 mg daily * N.p.o. RENAL/LYTES S/P nephrectomy: No evidence of NAKITA. Urine output approximately 0.7 L over last 24 hours. * ICU electrolyte replacement protocol * Borges catheter in place and patent. * No concerns at this time. ENDO * Glycemic management per ICU protocol HEME * Stable H&H. * Will monitor for any drops in the setting of Heparin gtt ID * Antibiotic management deferred to urology. Otherwise, no concerns for infection at this point. * Monitor fever curve. LINES/IV ACCESS * Central line intact * PIVs intact. DVT PROPHYLAXIS * Heparin gtt. Thank you for allowing us to be part of this patient's care. Please refer to Dr. Wren's documentation for any further recommendations. (2) Encephalopathy: (3) Seizure: (4) Hypotension: Admission and Anticipated Discharge Date Admission Date: January 23, 2022 Supervising Physician Co-Signing Physician Notes Patient seen and examined. EMR reviewed. Discussed with FP resident and on MDR. Neurology consult and EEG reviewed. MRI with probable multifocal small strokes suggestive of embolic phenomena. Outpt echo from 01/10 unremarkable. Recheck Echo here. US bilateral carotid. Attempted sedation break, able to pass SBT but still confused and not following commands. Continue sedation overnight and reassess in AM. Continue Keppra for now. ABG now normalized. Continue MV pending improvement in mental status. CC time 45 min managing critical care issues. Subjective Overnight, patient appeared to have seizure-like activity. She was administered Versed and propofol for sedation. Patient also appears to have received norepinephrine briefly. This morning, patient remains intubated. She is unconscious. She is mildly reactive to pain. Review of Systems Review of Systems: All systems reviewed & are unremarkable except as noted in HPI & below Physical Exam Physical Exam: General: Intubated and under sedation. Mild response to pain in fingers and toes. In no acute distress. HEENT: PERRLA. Normal conjunctiva, anicteric sclera. ET intubation, gastric lavage tubes, in place. Respiratory: Lungs CTA BL. Cardiovascular: RRR without murmurs, gallops, or rubs. No edema. GI: Soft abdomen with normal bowel sounds heard on auscultation. Nontender x4 quadrants Neuro: Sedated, unconscious. Results & Data Results & Data ([facility]) Vital Signs (Past 12 Hours) Vital Signs Temp Pulse Resp BP Pulse Ox O2 Del Method FiO2 01/24/22 07:24 97 H 18 98 30 01/24/22 06:00 74 16 115/58 L 100 Mechanical Vent 30 01/24/22 05:30 87 16 98 Mechanical Vent 30 01/24/22 05:00 82 16 131/70 99 Mechanical Vent 30 01/24/22 04:30 85 16 93 Mechanical Vent 30 01/24/22 04:00 36.7 C 76 16 116/81 98 Mechanical Vent 30 01/24/22 03:30 78 16 98 Mechanical Vent 30 01/24/22 04:00 30 01/24/22 03:00 75 16 122/77 98 Mechanical Vent 30 01/24/22 02:30 77 16 99 Mechanical Vent 30 01/24/22 02:00 74 16 136/75 99 Mechanical Vent 30 01/24/22 01:30 72 16 98 Mechanical Vent 30 01/24/22 02:05 74 16 99 30 01/24/22 01:00 76 16 120/78 98 Mechanical Vent 30 01/24/22 00:30 74 18 99 Mechanical Vent 30 11/02/22 00:47 16 30 01/24/22 00:00 36.8 C 75 18 103/71 98 Mechanical Vent 30 01/23/22 23:30 81 18 96 Mechanical Vent 30 01/23/22 23:00 81 18 91/71 L 97 Mechanical Vent 30 01/24/22 00:00 30 01/23/22 22:30 89 16 98 Mechanical Vent 30 01/23/22 22:14 101 H 22 147/85 H 98 Mechanical Vent 30 01/23/22 22:11 105 H 22 78/41 L 97 Mechanical Vent 30 01/23/22 22:07 108 H 22 87/45 L 98 Mechanical Vent 30 01/23/22 22:04 111 H 22 108/89 98 Mechanical Vent 30 01/23/22 22:00 128 H 24 136/93 97 Mechanical Vent 30 01/23/22 21:30 70 22 99 Mechanical Vent 30 01/23/22 21:00 74 22 137/53 L 99 Mechanical Vent 30 01/23/22 20:30 78 22 146/76 H 98 Mechanical Vent 30 01/23/22 20:00 37.4 C 100 H 22 130/79 100 Mechanical Vent 30 01/23/22 22:32 89 18 98 30 01/23/22 20:00 Mechanical Vent 30 01/23/22 20:00 30 Critical Care Results & Data Vital Signs (Past 12 Hours) Vital Signs Temp Pulse Resp BP Pulse Ox O2 Del Method FiO2 01/24/22 15:10 73 16 100 30 01/24/22 14:57 75 01/24/22 14:03 81 16 100 01/24/22 14:03 126/78 01/24/22 14:00 86 14 01/24/22 13:00 76 16 100 01/24/22 13:00 108/76 01/24/22 12:30 75 16 99 01/24/22 14:23 37.3 C 01/24/22 11:37 87 16 99 30 01/24/22 12:00 77 16 100 01/24/22 12:00 108/54 L 01/24/22 11:30 91 H 17 100 01/24/22 11:00 79 16 99 01/24/22 11:00 98/62 L 01/24/22 10:30 74 16 98 01/24/22 10:00 79 16 99 01/24/22 10:00 113/68 01/24/22 09:30 78 16 98 01/24/22 09:42 36.3 C L 01/24/22 09:00 87 16 98 01/24/22 09:00 118/72 01/24/22 08:30 76 16 99 01/24/22 08:00 79 16 97 01/24/22 08:00 122/71 01/24/22 07:30 86 13 98 01/24/22 07:00 82 16 100 01/24/22 07:00 123/63 01/24/22 06:30 73 16 99 01/24/22 08:33 Mechanical Vent 30 01/24/22 07:24 97 H 18 98 30 01/24/22 06:00 74 16 115/58 L 100 Mechanical Vent 30 01/24/22 05:30 87 16 98 Mechanical Vent 30 01/24/22 05:00 82 16 131/70 99 Mechanical Vent 30 01/24/22 04:30 85 16 93 Mechanical Vent 30 Lab & Micro Results (Past 24 Hours) RBC 3.34 M/uL (3.93-5.22) L 01/24/22 WBC 8.90 K/ul (4.8-10.8) 01/24/22 Hgb 9.8 g/dl (12.0-16.0) L 01/24/22 Hct 29.6 % (34.1-44.9) L 01/24/22 MCV 88.6 fL (80.0-100.0) 01/24/22 MCH 29.3 pg (25.0-34.0) 01/24/22 MCHC 33.1 g/dL (32.0-36.0) 01/24/22 RDW Standard Deviation 44.7 fL (36.4-46.3) 01/24/22 RDW Coefficient of Variation 13.7 % (11.5-14.5) 01/24/22 Plt Count 199 K/uL (130-400) 01/24/22 MPV 9.3 fL (9.4-12.3) L 01/24/22 Neutrophils (%) (Auto) 87.0 % 01/24/22 Lymphocytes (%) (Auto) 4.0 % 01/24/22 Monocytes # (Auto) 0.78 K/uL (0.24-0.82) 01/24/22 Eosinophils # (Auto) 0.00 K/uL (0-0.50) 01/24/22 Immature Granulocyte % (Auto) 0.1 % 01/24/22 Neutrophils # (Auto) 7.74 K/uL (1.4-6.5) H 01/24/22 Lymphocytes # (Auto) 0.36 K/uL (1.2-3.4) L 01/24/22 Monocytes # (Auto) 0.78 K/uL (0.24-0.82) 01/24/22 Eosinophils # (Auto) 0.00 K/uL (0-0.50) 01/24/22 Basophils # (Auto) 0.01 K/uL (0-0.2) 01/24/22 Immature Granulocyte # (Auto) 0.01 K/uL (0.00-0.02) 2 Na 137 mmol/L (136-145) 01/24/22 K 4.5 mmol/L (3.5-5.1) 01/24/22 Cl 108 mmol/L (98-107) H 01/24/22 CO2 23 mmol/L (21-32) 01/24/22 Anion Gap 6 (3-11) 01/24/22 BUN 16 mg/dl (6-23) 01/24/22 Creatinine 1.12 mg/dl (0.6-1.2) 01/24/22 Estimated GFR ( Amer) 52.6 ml/min 01/24/22 Estimated GFR (Non-Af Amer) 45.4 ml/min 01/24/22 BUN/Creatinine Ratio 14.3 (10-20) 01/24/22 Glu 139 mg/dl (70-99(Fasting)) H 01/24/22 Ca 8.0 mg/dl (8.5-10.1) L 01/24/22 Phosphorus Level 3.4 mg/dl (2.5-4.9) 01/24/22 Mg 1.6 mg/dl (1.7-2.4) L 01/24/22 10:14 Calcium Level 8.0 mg/dl (8.5-10.1) L 01/24/22 05:50 Mio Test NA 01/24/22 05:26 Diagnostic Findings (Past 24 Hours) Chest X-Ray 01/23/22 14:37 XR chest 1V portable CLINICAL HISTORY: Post intubation X-ray TECHNIQUE: Single frontal radiograph of the chest was obtained. Comparison: Comparison is made to chest radiograph 07/06/2021 FINDINGS: Endotracheal tube terminates 45 mm from the mervat. Calcified aortic knob is seen. Redemonstration of pulmonary densities in the left lung. No evidence of pleural effusion or pneumothorax. IMPRESSION: 1. Satisfactory position of endotracheal tube. 2. Redemonstration of left pulmonary densities. ACT 112: Negative or not required by law. Electronically signed by: Adelso Woodard M.D. 01/23/2022 4:[address] 01/23/22 15:[address] DOSE: 690.05 mGycm HISTORY: altered mental status, possible seizure TECHNIQUE: Multiaxial CT images of the head were performed without the use of intravenous contrast. Automated exposure control was utilized for this study. A dose lowering technique was utilized adhering to the principles of ALARA. Comparison: None. Findings: The paranasal sinuses and mastoid air cells are clear. The calvarium and skull base are intact. There is no mass, hematoma, midline shift, acute infarct. White matter hypodensity is nonspecific but suggestive of microvascular ischemic change. The ventricles and sulci demonstrate mild age-related involutional changes. Impression: No acute intracranial abnormality. ACT 112: Negative or not required by law. Electronically signed by: Karlos Amanda M.D. 01/23/2022 4:30 PM Brain MRI 01/24/22 09:39 MR BRAIN WO/W CON HISTORY: 81 years-old Female R/O seizure, AMS, acute seizure-like activity. COMPARISON: Head CT 01/23/2022 TECHNIQUE: Multiplanar multisequence MRI of the brain was obtained both with and without the use of 5 cc Gadavist. FINDINGS: Database Software Technician localizer images demonstrate no gross extracranial abnormality. There are a few scattered subcentimeter foci of restricted diffusion within the posterior right parietal lobe, left occipital and posterior left temporal lobes. Equivocal punctate focus of the left cerebellum and superior left frontal lobe. These larger foci demonstrate decreased signal on the ADC map with subtle areas of slightly increased FLAIR signal. No acute or subacute territorial infarct. There is a 9 mm cortically based area of increased T2 and FLAIR signal within the lateral left temporal lobe, image 14 series 8 with decreased signal on the ADC map. This portion of the brain parenchyma is not well evaluated on the diffusion-weighted series secondary to artifact. The medial temporal lobes appear normal. No abnormal intra-axial or extra-axial enhancement identified. The postcontrast images however are motion degraded. Skull, orbits and soft tissues are unremarkable. Trace mastoid effusions. Mild to moderate mucosal thickening of the paranasal sinuses. Leftward bowing and spurring of the nasal septum. IMPRESSION: 1. Subtle subcentimeter foci of restricted diffusion within the posterior right parietal, superior left frontal, left occipital and posterior temporal lobes are suggestive of tiny acute or subacute infarcts. 2. 9 mm focus of increased T2/FLAIR signal within the lateral left temporal lobe is not well visualized on the diffusion-weighted series and may represent an additional acute or subacute infarct versus seizure focus. 3. No abnormal enhancement. 4. Involutional changes with mild chronic microvascular ischemic disease. ACT 112: Negative or not required by law. The above report was generated using voice recognition software. It may contain grammatical, syntax or spelling errors. Dictated: 01/24/2022 1:58 PM Transcribed: 01/24/2022 2:35 PM Jes [id number] [facility] Electronically signed by: Nasim Rubio M.D. 01/24/2022 3:41 PM KUB X-Ray 01/24/22 11:04 KUB CLINICAL HISTORY: MRI clearance COMPARISON STUDY: CT of the abdomen and pelvis September 14, 2020. FINDINGS: Tip of nasogastric tube projects over the pylorus. Bowel gas pattern is normal. No contraindication to MRI is noted. Moderate amount of stool is noted. Calcified fibroids are present. IMPRESSION: No contraindication to MRI within the abdomen or pelvis. ACT 112: Negative or not required by law. Electronically signed by: Dante Justice M.D. 01/24/2022 3:32 PM I & O Totals 24 Hours 01/23/22 01/24/22 01/25/22 06:59 06:59 06:59 Intake Total 4527.463 / 4527.463 1255.318 / 1255.318 Output Total 746 / 746 200 / 200 Balance 3781.463 / 3781.463 1055.318 / 1055.318 Cumulative 11/21/21 10:08 thru 01/24/22 15:29 Intake Total 5782.781 Output Total 946 Balance 4836.781 RT Ventilator Mngmt (Last Documented) Ventilator Ordered Settings Ventilator Support Mode Assist Control 01/24/22 15:10 Respiratory Rate 16 01/24/22 15:10 Ventilator Tidal Volume 300 01/24/22 15:10 Setting Minute Ventilation 4.7 01/24/22 15:10 Positive End Expiratory 5 01/24/22 15:10 Pressure Fraction of Inspired Oxygen 30 01/24/22 15:10 Peak Inspiratory Flow 27 01/24/22 15:10 Machine Comment changes by SHANICE Beyer 01/24/22 00:47 Ventilator - PT Measurements Respiratory Rate 16 Exhaled Tidal Volume 300 Minute Ventilation 4.7 Peak Inspiratory Airway 15 Pressure Plateau Pressure 13.3 Respiratory Cycle Inspiratory: 1:3.2 Expiratory Ratio Inspiratory Phase Time 0.90 End-Tidal CO2 30 Static Lung Compliance 36.14 Dynamic Lung Compliance 30.00 Normal Static Lung Compliance 47.00 Patient Measurements Comment pt asleep/sedated comfortably on the ventilator Resident Activity Tracking Resident Involvement: Resident Care Provided Care Provided: Adult Hospital Medicine
--- NOTE | 2022-01-24 08:16 | Urology Progress Note ---
Date of Service January 24, 2022 Assessment & Plan (1) Renal mass: Plan: Suspected renal cell carcinoma now status post right radical nephrectomy Postoperative course complicated by seizure-like activity necessitating ICU stay, sedation, intubation EEG performed this morning and Keppra started empirically We will continue to observe and see if she progresses throughout the day today Discussed care with ICU team and potential plans for extubation Stable from a surgical standpoint and kidney standpoint Admission and Anticipated Discharge Date Admission Date: January 23, 2022 Subjective Postop day #1 status post right robotic nephrectomy Uneventful surgery but she did have some complications in the recovery room where she exhibited seizure-like activity She did not seem to be progressing appropriately and ultimately was reintubated and sedated She exhibited further seizure-like activity over nightthis prompted neurology consult, EEG and empiric Keppra She has not exhibited further seizure activity since that time Labs are stable, vital stable on the vent Good urine output Physical Exam Physical Exam: Vented, sedated Abdomen soft, some ecchymosis under the extraction site but otherwise incisions all appear completely appropriate, urine clear Results & Data ([facility]) Vital Signs (Past 12 Hours) Vital Signs Temp Pulse Resp BP Pulse Ox O2 Del Method FiO2 01/24/22 07:24 97 H 18 98 30 01/24/22 06:00 74 16 115/58 L 100 Mechanical Vent 30 01/24/22 05:30 87 16 98 Mechanical Vent 30 01/24/22 05:00 82 16 131/70 99 Mechanical Vent 30 01/24/22 04:30 85 16 93 Mechanical Vent 30 01/24/22 04:00 36.7 C 76 16 116/81 98 Mechanical Vent 30 01/24/22 03:30 78 16 98 Mechanical Vent 30 01/24/22 04:00 30 01/24/22 03:00 75 16 122/77 98 Mechanical Vent 30 01/24/22 02:30 77 16 99 Mechanical Vent 30 01/24/22 02:00 74 16 136/75 99 Mechanical Vent 30 01/24/22 01:30 72 16 98 Mechanical Vent 30 01/24/22 02:05 74 16 99 30 01/24/22 01:00 76 16 120/78 98 Mechanical Vent 30 01/24/22 00:30 74 18 99 Mechanical Vent 30 01/24/22 00:47 16 30 01/24/22 00:00 36.8 C 75 18 103/71 98 Mechanical Vent 30 01/23/22 23:30 81 18 96 Mechanical Vent 30 01/23/22 23:00 81 18 91/71 L 97 Mechanical Vent 30 01/24/22 00:00 30 01/23/22 22:30 89 16 98 Mechanical Vent 30 01/23/22 22:14 101 H 22 147/85 H 98 Mechanical Vent 30 01/23/22 22:11 105 H 22 78/41 L 97 Mechanical Vent 30 01/23/22 22:07 108 H 22 87/45 L 98 Mechanical Vent 30 01/23/22 22:04 111 H 22 108/89 98 Mechanical Vent 30 01/23/22 22:00 128 H 24 136/93 97 Mechanical Vent 30 01/23/22 21:30 70 22 99 Mechanical Vent 30 01/23/22 21:00 74 22 137/53 L 99 Mechanical Vent 30 01/23/22 20:30 78 22 146/76 H 98 Mechanical Vent 30 01/23/22 22:32 89 18 98 30 PG Care Time/CCT Total # of Minutes Spent Total Time Spent with Patient: Total time spent is greater than 50% in coordination of care (as documented) at patient's floor/unit and/or counseling patient: Coding Level of Care Code None Diagnoses Renal mass N28.89
[2022-01-24 09:23] LABS: Estimated Average Glucose 105 mg/dl; Hemoglobin A1C 5.3 % (4.5-5.6)
[2022-01-24] MEDS: LACTATED RINGER'S 1,000 ML IV SCH ×2 (09:37→19:11)
[2022-01-24] MEDS ORDERED: levETIRAcetam 500 MG in 0.9 % SODIUM CHLORIDE 100 ML IV SCH (10:00)
--- NOTE | 2022-01-24 10:26 | Neurology Consultation ---
Date of Consultation January 24, 2022 Assessment & Plan (1) Seizure: (2) Encephalopathy: Plan 81-year-old female with new onset seizures following nephrectomy for an exophytic mass concerning for renal cell carcinoma yesterday. Patient remains on sedation, on the mechanical ventilator. CT of the head completed yesterday was negative for hemorrhage or acute process. Patient has been loaded with Keppra, 1500 mg IV. She has an order for Keppra 1000 mg IV every 12 hours. A brain MRI has been ordered. EEG completed this morning negative for epileptiform abnormalities. Findings suggestive of encephalopathy. Continue with Keppra 1000 mg IV every 12 hours. Follow-up with results of MRI. Patient likely had a provoked seizure occurring in the postoperative timeframe. I will advise further pending completion of the MRI. History of Present Illness Reason for Consultation: Seizure status post nephrectomy Requesting Physician: TEMI Boudreaux Attending Physician: Ranjeet Reyes MD History of Present Illness The patient is an 81-year-old female who underwent right nephrectomy on January 23, 2022 for an exophytic mass concerning for renal cell carcinoma. In the postoperative timeframe yesterday, patient had an observed seizure characterized by twitching movements of the face, clutching movements with the hands. She was intubated for respiratory failure. She had another observed seizure-like episode characterized by left arm twitching and jerking, with associated facial twitching. The movements were described as repetitive and rhythmic. I discussed her case with TEMI Marks, at that time and had recommended treatment with IV Keppra, 1.[address] of the head at that time was negative for acute process. An EEG was completed this morning. The patient has no known prior history of seizure disorder. She has not had any further seizure episodes overnight. She remains sedated on the mechanical ventilator. Allergies Allergy/AdvReac Type Severity Reaction Status Date / Time Iodinated Contrast Media Allergy Unknown hives Verified 01/23/22 09:13 povidone-iodine Allergy Unknown Rash Verified 01/23/22 09:13 [From Betadine] soap [From Betadine] Allergy Unknown Rash Verified 01/23/22 09:13 Home Medications Medication Instructions Recorded Confirmed Type acetaminophen 650 mg 650 mg PO Q8H PRN Pain 11/23/20 01/23/22 History tablet,extended release (Tylenol Arthritis Pain) mecobalamin (vitamin B12) 1,000 1,000 mcg PO UD 11/23/20 01/23/22 History mcg chewable tablet tafluprost (PF) 0.0015 % eye drops 1 drp ophthalmic (eye) HS 11/23/20 01/23/22 History in a dropperette (Zioptan (PF)) aspirin 325 mg tablet 325 mg PO UD PRN Pain 07/04/21 01/23/22 History biotin 1 mg tablet 1 mg PO QAM 07/04/21 01/23/22 History calcium 600 mg capsule 1,200 mg PO BID 12/25/21 01/23/22 History Patient History Medical History Falls Glaucoma History of concussion After fall 07/2021 - residual memory issues, continued improvement Sustained C5 osteophyte fracture vs teardrop fracture - medically managed, weaned off cervical collar per [facility] neurosurgery Osteoarthritis Poor historian Renal mass Reason for upcoming surgery Surgical History H/O tubal ligation History of colonoscopy History of shoulder surgery Left (metal implant in place)- ~ 2002 History of surgery on arm Right arm fracture repair (07/2021) History of wisdom tooth extraction Hx of hemorrhoidectomy Hx of tonsillectomy Family History Other Memory loss No family history of adverse response to anesthesia Social History Smoking Status: Former smoker Smoking End Date: Quit several years ago; Second Hand Exposure: No; Do You Dip or Chew Tobacco: No; Hx Alcohol Use: No Hx Substance Use: No Preferred Language: Omani Communication Ability: Effective Communication Ability Comment: SEE PAT COMMUNICATION NOTES Pool Technician Required: No Beliefs That Will Affect Care: None marital status: / Current Living Situation: Significant Other Current Living Situation Comment: FRIEND, YAMILETH current occupational status: retired Feels Safe at Home: Declines to Answer Assistive Devices: Glasses Review of Systems Review of Systems: Unobtainable due to endotracheal tube and Unobtainable due to reduced consciousness Exam (Neuro) Physical Exam: Limited neurological examination. Patient sedated, intubated, on the mechanical ventilator in the ICU. She opens her eyes briefly to tactile stimulation. She does not follow commands. She is observed occasionally grabbing at her endotracheal tube and other lines. She appears to move all 4 limbs symmetrically, does not have an obvious monoparesis, hemiparesis, or paraparesis. Muscle tone is diffusely normal. No tremors, dyskinesias, or other abnormal movements observed. No abnormal posturing. The right pupil is round and reactive, left pupil is postsurgical in appearance. There is no gaze deviation. No nystagmus. Corneal reflexes intact. Gag intact. Patient withdraws all 4 limbs to noxious stimulation. Plantar responses upgoing bilaterally, deep tendon reflexes otherwise normal active and symmetric. Sensory examination and gait cannot be evaluated. Cognitive/higher integrative functioning cannot be fully assessed. There were no carotid bruits to auscultation. Direct ophthalmoscopic examination could not be completed. Results & Data ([facility]) Vital Signs (Past 12 Hours) Vital Signs Temp Pulse Resp BP Pulse Ox O2 Del Method FiO2 01/24/22 09:42 36.3 C L 01/24/22 09:00 87 16 98 01/24/22 09:00 118/72 01/24/22 08:30 76 16 99 01/24/22 08:00 79 16 97 01/24/22 08:00 122/71 01/24/22 07:30 86 13 98 01/24/22 07:00 82 16 100 01/24/22 07:00 123/63 01/24/22 06:30 73 16 99 01/24/22 08:33 Mechanical Vent 30 01/24/22 07:24 97 H 18 98 30 01/24/22 06:00 74 16 115/58 L 100 Mechanical Vent 30 01/24/22 05:30 87 16 98 Mechanical Vent 30 01/24/22 05:00 82 16 131/70 99 Mechanical Vent 30 01/24/22 04:30 85 16 93 Mechanical Vent 30 01/24/22 04:00 36.7 C 76 16 116/81 98 Mechanical Vent 30 01/24/22 03:30 78 16 98 Mechanical Vent 30 01/24/22 04:00 30 01/24/22 03:00 75 16 122/77 98 Mechanical Vent 30 01/24/22 02:30 77 16 99 Mechanical Vent 30 01/24/22 02:00 74 16 136/75 99 Mechanical Vent 30 01/24/22 01:30 72 16 98 Mechanical Vent 30 01/24/22 02:05 74 16 99 30 01/24/22 01:00 76 16 120/78 98 Mechanical Vent 30 01/24/22 00:30 74 18 99 Mechanical Vent 30 01/24/22 00:47 16 30 01/24/22 00:00 36.8 C 75 18 103/71 98 Mechanical Vent 30 01/23/22 23:30 81 18 96 Mechanical Vent 30 01/23/22 23:00 81 18 91/71 L 97 Mechanical Vent 30 01/24/22 00:00 30 01/23/22 22:30 89 16 98 Mechanical Vent 30 01/23/22 22:14 101 H 22 147/85 H 98 Mechanical Vent 30 01/23/22 22:32 89 18 98 30 Laboratory Results WBC 8.90, hemoglobin 9.8, hematocrit 29.6, platelet count 199, sodium 138, potassium 4.5, BUN 16, creatinine 1.12, glucose 139, hemoglobin A1c 5.3, AST 35, ALT 27, SARS-CoV-[address] of the head completed yesterday was negative for hemorrhage or acute process. I did independently review the images, there is a chronic left subinsular lacunar infarct or prominent perivascular space. There are bilateral basal ganglia calcifications. There is generalized atrophy. No hydrocephalus. No hemorrhage or acute process. EEG completed this morning reveals generalized slowing consistent with a nonspecific encephalopathy. No epileptiform abnormalities. Coding Level of Care Code 48249 Initial Inpt Care Lvl 3 Diagnoses Seizure R56.9 Encephalopathy G93.40
--- NOTE | 2022-01-24 10:51 | Electroencephalogram ---
EEG Procedure Note Date of Service January 24, 2022 Start / End Times Start Time: 7:11 AM End Time: 7:31 AM Referring Physician TEMI Boudreaux History New onset seizure x2 status post nephrectomy Home Medication List Medication Instructions Recorded Confirmed Type acetaminophen 650 mg 650 mg PO Q8H PRN Pain 11/23/20 01/23/22 History tablet,extended release (Tylenol Arthritis Pain) mecobalamin (vitamin B12) 1,000 1,000 mcg PO UD 11/23/20 01/23/22 History mcg chewable tablet tafluprost (PF) 0.0015 % eye drops 1 drp ophthalmic (eye) HS 11/23/20 01/23/22 History in a dropperette (Zioptan (PF)) aspirin 325 mg tablet 325 mg PO UD PRN Pain 07/04/21 01/23/22 History biotin 1 mg tablet 1 mg PO QAM 07/04/21 01/23/22 History calcium 600 mg capsule 1,200 mg PO BID 12/25/21 01/23/22 History Inpatient Medication List Lactated Ringer's (Lr) 1,000 mls @ 100 mls/hr IV .Q10H VIDYA Stop: 02/22/22 14:59 Last Admin: 01/24/22 09:37 Dose: 100 mls/hr Documented By: Infusion: 01/24/22 08:37 Dose: 100 mls/hr Documented By: Admin: 01/23/22 22:37 Dose: 100 mls/hr Documented By: Infusion: 01/23/22 22:37 Dose: 100 mls/hr Documented By: Admin: 01/23/22 16:41 Dose: 100 mls/hr Documented By: ALEJANDRA Norepinephrine Bitartrate (Levophed/D5w) 4 mg in 250 mls @ 9.169 mls/hr IV .Q24H VIDYA; Protocol Stop: 02/22/22 15:44 Last Titration: 01/23/22 22:48 Dose: 0 mcg/kg/min, 0 mls/hr Documented By: Titration: 01/23/22 22:30 Dose: 0.03 mcg/kg/min, 5.5 mls/hr Documented By: Admin: 01/23/22 22:08 Dose: 0.05 mcg/kg/min, 9.2 mls/hr Documented By: TP Co-signed By: NGOZI Titration: 01/23/22 22:08 Dose: 0 mcg/kg/min, 0 mls/hr Documented By: TP Co-signed By: NGOZI Titration: 01/23/22 17:30 Dose: 0 mcg/kg/min, 0 mls/hr Documented By: Titration: 01/23/22 16:36 Dose: 0.02 mcg/kg/min, 3.7 mls/hr Documented By: Titration: 01/23/22 16:17 Dose: 0.08 mcg/kg/min, 14.7 mls/hr Documented By: Admin: 01/23/22 16:14 Dose: 0.1 mcg/kg/min, 18.3 mls/hr Documented By: GPYazan Co-signed By: LACIE Propofol (Diprivan) 1,000 mg in 100 mls @ 5.868 mls/hr IV .Q17H3M VIDYA; Protocol Stop: 01/26/22 15:44 Last Titration: 01/24/22 08:00 Dose: 20 mcg/kg/min, 5.9 mls/hr Documented By: KJSamantha Titration: 01/23/22 23:18 Dose: 0 mcg/kg/min, 0 mls/hr Documented By: Admin: 01/23/22 22:07 Dose: 15 mcg/kg/min, 4.4 mls/hr Documented By: TP Co-signed By: NGOZI Insulin Aspart (Insulin Aspart Per Unit) 0 units SC Q6 VIDYA Stop: 02/23/22 00:00 Last Admin: 01/24/22 05:28 Dose: Not Given Documented By: Admin: 01/24/22 00:01 Dose: 1 units Documented By: NGOZI Co-signed By: TP Discontinued Medications Bupivacaine HCl (Bupivacaine 0.5 % 5 Mg/1 Ml Mpf 30ml Vial) Confirm Administered Dose 30 ml .ROUTE .STK-MED ONE Stop: 01/23/22 09:56 Last Admin: 01/23/22 12:28 Dose: 24 ml Documented By: JOY Lactated Ringer's (Lr) 1,000 mls @ 15 mls/hr IV .Q24H VIDYA Stop: 01/24/22 05:59 Last Infusion: 01/23/22 10:00 Dose: 0 mls/hr Documented By: Admin: 01/23/22 09:25 Dose: 15 mls/hr Documented By: YOBANY Cefazolin Sodium (Ancef 2000mg) 2,000 mg in 15 mls @ 3.75 mls/min IV PREOP VIDYA; Protocol Stop: 01/23/22 18:00 Last Admin: 01/23/22 10:00 Dose: 3.75 mls/min Documented By: PRABHU Cefazolin Sodium (Ancef 2000mg) 2,000 mg in 15 mls @ 3.75 mls/min IV Q8H VIDYA; Protocol Stop: 01/23/22 23:03 Last Admin: 01/23/22 22:18 Dose: 3.75 mls/min Documented By: Admin: 01/23/22 16:41 Dose: 3.75 mls/min Documented By: GPYazan Lactated Ringer's (Lr) 2,000 mls @ 999 mls/hr IV .Q2H1M ONE Stop: 01/23/22 17:32 Last Infusion: 01/23/22 17:30 Dose: 0 mls/hr Documented By: GPYazan Admin: 01/23/22 16:13 Dose: 999 mls/hr Documented By: ALEJANDRA Levetiracetam 1,000 mg/ Sodium (Chloride) 110 mls @ 440 mls/hr IV NOW STA Stop: 01/23/22 22:22 Last Admin: 01/24/22 09:45 Dose: Not Given Documented By: KJSamantha Levetiracetam 1,500 mg/ Sodium (Chloride) 115 mls @ 440 mls/hr IV NOW STA Stop: 01/23/22 22:23 Last Infusion: 01/23/22 23:22 Dose: 0 mls/hr Documented By: Admin: 01/23/22 22:49 Dose: 440 mls/hr Documented By: NGOZI Lactated Ringer's (Lr) 500 mls @ 999 mls/hr IV .Q31M ONE Stop: 01/23/22 23:52 Last Infusion: 01/23/22 22:30 Dose: 0 mls/hr Documented By: Admin: 01/23/22 22:00 Dose: 999 mls/hr Documented By: NGOZI Insulin Glargine (Lantus Per Unit Charge) 5 units SQ ONE ONE Stop: 01/23/22 23:46 Last Admin: 01/24/22 00:00 Dose: 5 units Documented By: NGOZI Co-signed By: TERRANCE Midazolam HCl (Midazolam Hcl 5 Mg/Ml 1 Ml Vial) Confirm Administered Dose 5 mg .ROUTE .STK-MED ONE Stop: 01/23/22 21:59 Last Admin: 01/23/22 22:08 Dose: 5 mg Documented By: TP Midazolam HCl (Midazolam Hcl 5 Mg/Ml 1 Ml Vial) 5 mg IV NOW STA Stop: 01/23/22 22:07 Last Admin: 01/23/22 22:18 Dose: Not Given Documented By: NGOZI Miscellaneous ( Floseal Hemostatic Matrix 10ml) 10 ml TOP ONCE ONE Stop: 01/23/22 11:24 Last Admin: 01/23/22 11:56 Dose: 10 ml Documented By: JOY Miscellaneous (Surgicel Absorb Hemostat 2in X 14in) 1 each TOP ONCE ONE Stop: 01/23/22 11:24 Last Admin: 01/23/22 12:09 Dose: Not Given Documented By: ANIA Miscellaneous (Tisseel Fibrin Sealant 10ml) 10 ml TOP ONCE ONE Stop: 01/23/22 11:24 Last Admin: 01/23/22 12:09 Dose: Not Given Documented By: ANIA Miscellaneous (Icu Moderate Hyperglycemia Protocol) 1 each N/A ONE ONE Stop: 01/23/22 23:29 Last Admin: 01/24/22 09:46 Dose: Not Given Documented By: KJS Norepinephrine Bitartrate (Norepinephrine/D5w 4 Mg/250 Ml) Confirm Administered Dose 4 mg IV .STK-MED ONE Stop: 01/23/22 14:56 Last Admin: 01/23/22 16:13 Dose: 4 mg Documented By: GPYazan Potassium Chloride (Potassium Chloride 20 Meq/15 Ml Udc) 40 meq PO NOW STA Stop: 01/23/22 23:17 Last Admin: 01/23/22 23:30 Dose: 40 meq Documented By: NGOZI Description This is a 21 electrode EEG with a single channel dedicated to limited EKG. The electrodes were placed in accordance with the International 10-20 system. There is generalized polymorphic theta activity with a frequency of 4 to 5 Hz, generally low amplitude throughout the study. Faster symmetric beta frequencies are seen frontally. Photic stimulation unremarkable. Hyperventilation not performed. Intermittent movement artifact noted. No focal slowing. No epileptiform abnormalities. Interpretation Abnormal awake/drowsy EEG revealing evidence of a moderate nonspecific encephalopathy. No epileptiform abnormalities observed. [facility] EEG Procedure Codes Indication for Procedure (1) Seizure: Neurology Neurology: 83220 EEG include record awake & drowsy
[2022-01-24] MEDS: levETIRAcetam 1,000 MG in 0.9 % SODIUM CHLORIDE 100 ML IV SCH ×2 (11:09→21:48)
[2022-01-24] MEDS: PANTOprazole 40 MG in SYRINGE 0 ML IV SCH (11:09)
[2022-01-24 11:13] LABS: Magnesium 1.6 mg/dl (1.7-2.4); Phosphorus 3.4 mg/dl (2.5-4.9)
[2022-01-24] MEDS: MAGNESIUM SULFATE / D5W 1 GM/100 ML BAG IV SCH ×2 (12:30→15:03)
[2022-01-24] MEDS ORDERED: GADOBUTROL 65ML VIAL IV ONE (13:44)
--- NOTE | 2022-01-24 15:34 | XRay Report ---
KUB CLINICAL HISTORY: MRI clearance COMPARISON STUDY: CT of the abdomen and pelvis September 14, 2020. FINDINGS: Tip of nasogastric tube projects over the pylorus. Bowel gas pattern is normal. No contrain dication to MRI is noted. Moderate amount of stool is noted. Calcified fibroids are present. IMPRESSION: No contraindication to MRI within the abdomen or pelvis. ACT 112: Negative or not required by law. Electronically signed by: Dante Justice M.D. 01/24/2022 3:32 PM
--- NOTE | 2022-01-24 15:43 | Magnetic Resonance Report ---
MR BRAIN WO/W CON HISTORY: 81 years-old Female R/O seizure, AMS, acute seizure-like activity. COMPARISON: Head CT 01/23/2022 TECHNIQUE: Multiplanar multisequence MRI of the brain was obtained both with and without the use of 5 cc Gadavist. FINDINGS: Plant Engineer localizer images demonstrate no gross extracranial abnormality. There are a few scattered subce ntimeter foci of restricted diffusion within the posterior right parietal lobe, left occipital and po sterior left temporal lobes. Equivocal punctate focus of the left cerebellum and superior left fronta l lobe. These larger foci demonstrate decreased signal on the ADC map with subtle areas of slightly i ncreased FLAIR signal. No acute or subacute territorial infarct. There is a 9 mm cortically based are a of increased T2 and FLAIR signal within the lateral left temporal lobe, image 14 series 8 with decr eased signal on the ADC map. This portion of the brain parenchyma is not well evaluated on the diffus ion-weighted series secondary to artifact. The medial temporal lobes appear normal. No abnormal intra -axial or extra-axial enhancement identified. The postcontrast images however are motion degraded. Skull, orbits and soft tissues are unremarkable. Trace mastoid effusions. Mild to moderate mucosal th ickening of the paranasal sinuses. Leftward bowing and spurring of the nasal septum. IMPRESSION: 1. Subtle subcentimeter foci of restricted diffusion within the posterior right parietal, superior le ft frontal, left occipital and posterior temporal lobes are suggestive of tiny acute or subacute infa rcts. 2. 9 mm focus of increased T2/FLAIR signal within the lateral left temporal lobe is not well visualiz ed on the diffusion-weighted series and may represent an additional acute or subacute infarct versus seizure focus. 3. No abnormal enhancement. 4. Involutional changes with mild chronic microvascular ischemic disease. ACT 112: Negative or not required by law. The above report was generated using voice recognition software. It may contain grammatical, syntax o r spelling errors. Dictated: 01/24/2022 1:58 PM Transcribed: 01/24/2022 2:35 PM Jes [id number] [email or web address] Electronically signed by: Nasim Rubio M.D. 01/24/2022 3:41 PM
[2022-01-24] MEDS: propofoL 1,000 MG/100 ML VIAL IV SCH ×2 (16:05→19:09)
--- NOTE | 2022-01-24 16:19 | Billing Data ---
Date of Service January 24, 2022 Coding Level of Care Code Critical Care 1st - mins
[2022-01-24] MEDS: ICU ELECTROLYTE REPLACEMENT PROTOCOL SCH (18:27)
[2022-01-24] MEDS: HEPARIN SOD 5,000 UNIT/0.5 ML VIAL SC SCH (21:47)
[2022-01-25] MEDS: INSULIN ASPART PER UNIT SC SCH ×5 (00:29→20:05)
[2022-01-25 04:49] LABS: Basophils # (auto) 0.02 K/uL (0-0.2); Basophils % (auto) 0.2 %; Eosinophils # (auto) 0.03 K/uL (0-0.50); Eosinophils % (auto) 0.4 %; Hematocrit (blood only) 26.4 % (34.1-44.9); Hemoglobin 8.6 g/dl (12.0-16.0); Immature Granulocytes # (auto) 0.04 K/uL (0.00-0.02); Immature Granulocytes % (auto) 0.5 %; Lymphocytes # (auto) 0.75 K/uL (1.2-3.4); Lymphocytes % (auto) 9.2 %; Mean Corpuscular Hemoglobin 29.4 pg (25.0-34.0); Mean Corpuscular Hgb Conc 32.6 g/dL (32.0-36.0); Mean Corpuscular Volume 90.1 fL (80.0-100.0); Mean Platelet Volume 9.4 fL (9.4-12.3); Monocytes # (auto) 0.94 K/uL (0.24-0.82); Monocytes % (auto) 11.6 %; Neutrophils # (auto) 6.35 K/uL (1.4-6.5); Neutrophils % (auto) 78.1 %; Platelet Count 158 K/uL (130-400); RDW Standard Deviation 45.9 fL (36.4-46.3); Red Blood Count 2.93 M/uL (3.93-5.22); White Blood Count 8.13 K/ul (4.8-10.8)
[2022-01-25] MEDS: LACTATED RINGER'S 1,000 ML IV SCH ×2 (05:11→15:06)
[2022-01-25 05:19] LABS: BUN Creatinine Ratio 15.7 (10-20); Creatinine Clr Calc Pharmacy 28.6 ml/min; Est GFR (Non-African American) 47.4 ml/min; Magnesium 2.1 mg/dl (1.7-2.4); Phosphorus 2.9 mg/dl (2.5-4.9); Potassium 4.2 mmol/L (3.5-5.1)
[2022-01-25] MEDS: ICU ELECTROLYTE REPLACEMENT PROTOCOL SCH ×2 (05:22→17:28)
--- NOTE | 2022-01-25 07:34 | Critical Care Progress Note ---
Date of Service January 25, 2022 Assessment & Plan (1) Hypercapnic respiratory failure: Plan: Reason Critically Ill: 81-year-old female who was admitted to the hospital for elective laparoscopic nephrectomy (suspected renal cell carcinoma) and transferred to the ICU for postoperative acute hypercapnic respiratory failure, seizure-like activity. Now awake and tolerating extubation on 3 L of oxygen via nasal cannula. Sedation: None Analgesia: Tylenol as needed Neuro Encephalopathy/seizure: Improving. Patient is awake and tolerating extubation. MRI brain completed yesterday. 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 Transthoracic echocardiogram, carotid Doppler studies have been ordered this morning to identify an embolic source. * Continue Keppra. Dose renally adjusted to 500 mg IV every 12 hours. Appreciate neurology recs. * TTE, carotid Doppler studies * Deferring initiation of anticoagulation therapy to neurology. * PT/OT evaluation ordered Cardiac Hypotension: Resolved. BP well controlled without medication. She is not on antihypertensive therapy at home. * Continue to monitor * Remove central line Respiratory Acute hypercapnic respiratory failure: Resolved, stable. Tolerating trial of extubation well on 3 L nasal cannula. COPD: Though not formally diagnosed, COPD likely given patient's smoking history, presenting hypercapnia. Managing as COPD exacerbation without steroids or antibiotic therapy. * Respiratory support with nasal cannula at 3 L O2. Wean as tolerated. * DuoNeb inhaler as needed for dyspnea. Encourage use of incentive spirometer. GI * Speech and swallow evaluation ordered * Stress ulcer prophylaxis: IV Pantoprazole 40 mg daily. Reassess after speech evaluation. * NPO. May convert IV meds to p.o. if speech evaluation uneventful. RENAL/LYTES S/P nephrectomy: No evidence of NAKITA. Creatinine improved versus yesterday. * ICU electrolyte replacement protocol * Remove Borges catheter * No concerns at this time. ENDO * Glycemic management per ICU protocol HEME Acute anemia: Nearly one-point drop in hemoglobin over 24 hours. No obvious source of bleeding. * Trend CBC daily * Will monitor for any drops in the setting of Heparin gtt ID No infection concerns at this point. * Antibiotic management deferred to urology. * Monitor fever curve. LINES/IV ACCESS * Central line intact * PIVs intact. DVT PROPHYLAXIS * Heparin gtt. Thank you for allowing us to be part of this patient's care. Please refer to Dr. Wren's documentation for any further recommendations. (2) Encephalopathy: (3) Seizure: (4) Hypotension: Admission and Anticipated Discharge Date Admission Date: January 23, 2022 Supervising Physician Co-Signing Physician Notes Patient seen and examined. EMR reviewed. Discussed with family practice resident as well as with bedside critical care nurse and on multidisciplinary rounds. Agree with assessment plan as noted. Patient was assessed this morning. Her mental status is much better. She is able to follow commands. Her spontaneous breathing trial numbers were reassuring with a R SBI less than 105. She was extubated to nasal cannula. MRI confirmed multiple small punctate strokes suggestive of showering embolic phenomenon. Echo with bubble pending as well as carotid duplex. Continue seizure medications under the direction of neurology. Will request PT OT and speech therapy evaluations. Discontinue Borges catheter get out of bed to chair as tolerated. If the patient does well over the next 24 hours, she can be transferred to the floor under the direction of the hospitalist and urology service. Outpatient pulmonary function testing would be recommended. Critical care will sign off once the patient transfers out of the intensive care unit. Subjective No acute events overnight. Patient awake and moving her extremities. She is intubated and unable to speak. However, she is able to shake her head yes or no to questions and follows commands including moving her extremities and head. MRI obtained yesterday showed evidence of multiple small acute or subacute infarcts in the posterior right parietal, superior left frontal, left occipital and posterior temporal lobes. There was also an area (lateral left temporal lobe) that may represent an acute infarct or seizure focus. Review of Systems Review of Systems: All systems reviewed & are unremarkable except as noted in HPI & below Physical Exam Physical Exam: General: No acute distress. Patient is intubated but awake and moving extremities. HEENT: PERRLA. Normal conjunctiva, anicteric sclera. Respiratory: Normal respiratory effort, CTABL. Cardiovascular: RRR without murmurs, gallops, or rubs. No edema. GI: Soft abdomen with normal bowel sounds heard on auscultation. Nontender x4 quadrants Neuro: Nonverbal (endotracheal tube) but alert. Results & Data Results & Data ([facility]) Vital Signs (Past 12 Hours) Vital Signs Temp Pulse Resp BP Pulse Ox O2 Del Method FiO2 01/25/22 07:13 Mechanical Vent 30 01/25/22 06:00 76 16 117/68 99 Mechanical Vent 30 01/25/22 05:30 81 17 99 Mechanical Vent 30 01/25/22 05:00 84 16 146/71 H 100 Mechanical Vent 30 01/25/22 04:30 74 16 99 Mechanical Vent 30 01/25/22 04:00 36.6 C 80 16 144/82 H 100 Mechanical Vent 30 01/25/22 04:00 30 01/25/22 03:30 71 16 100 Mechanical Vent 30 01/25/22 03:00 77 16 141/79 H 98 Mechanical Vent 30 01/25/22 02:30 71 16 100 Mechanical Vent 30 01/25/22 02:43 71 16 99 30 01/25/22 02:00 76 16 123/68 96 Mechanical Vent 30 01/25/22 01:30 74 16 99 Mechanical Vent 30 01/25/22 01:00 87 19 139/72 100 Mechanical Vent 30 01/25/22 00:30 85 17 99 Mechanical Vent 30 01/25/22 00:00 36.9 C 77 16 119/74 100 Mechanical Vent 30 01/24/22 23:30 73 16 99 Mechanical Vent 30 01/24/22 23:00 86 16 128/79 96 Mechanical Vent 30 01/24/22 22:30 91 H 20 131/76 92 Mechanical Vent 30 01/24/22 22:00 96 H 21 127/73 94 Mechanical Vent 30 01/24/22 21:30 90 17 124/81 93 Mechanical Vent 30 01/24/22 21:00 78 16 121/60 95 Mechanical Vent 30 01/24/22 20:30 74 16 94 Mechanical Vent 30 01/24/22 20:00 36.9 C 78 16 107/67 100 Mechanical Vent 30 01/24/22 20:00 30 01/25/22 00:00 30 01/24/22 20:00 Mechanical Vent 30 01/24/22 22:06 95 H 20 96 30 01/24/22 19:56 76 16 100 30 Critical Care Results & Data Vital Signs (Past 12 Hours) Vital Signs Temp Pulse Resp BP Pulse Ox O2 Del Method O2 Flow Rate 01/25/22 09:00 89 20 93 Nasal Cannula 3 01/25/22 09:00 120/97 01/25/22 08:15 153/97 H 01/25/22 08:15 89 21 94 01/25/22 08:00 100 H 24 95 01/25/22 07:30 96 H 19 94 01/25/22 07:01 153/101 H 01/25/22 07:01 99 H 18 95 01/25/22 07:00 93 H 21 97 01/25/22 06:30 71 16 100 01/25/22 07:11 97 H 19 96 01/25/22 09:08 75 01/25/22 08:20 36.7 C 01/25/22 08:14 01/25/22 07:13 Mechanical Vent 01/25/22 06:00 76 16 117/68 99 Mechanical Vent 01/25/22 05:30 81 17 99 Mechanical Vent 01/25/22 05:00 84 16 146/71 H 100 Mechanical Vent 01/25/22 04:30 74 16 99 Mechanical Vent 01/25/22 04:00 36.6 C 80 16 144/82 H 100 Mechanical Vent 01/25/22 04:00 01/25/22 03:30 71 16 100 Mechanical Vent 01/25/22 03:00 77 16 141/79 H 98 Mechanical Vent 01/25/22 02:30 71 16 100 Mechanical Vent 01/25/22 02:43 71 16 99 01/25/22 02:00 76 16 123/68 96 Mechanical Vent 01/25/22 01:30 74 16 99 Mechanical Vent 01/25/22 01:00 87 19 139/72 100 Mechanical Vent 01/25/22 00:30 85 17 99 Mechanical Vent 01/25/22 00:00 36.9 C 77 16 119/74 100 Mechanical Vent 01/24/22 23:30 73 16 99 Mechanical Vent 01/24/22 23:00 86 16 128/79 96 Mechanical Vent 01/25/22 00:00 FiO2 01/25/22 09:00 01/25/22 09:00 01/25/22 08:15 01/25/22 08:15 01/25/22 08:00 01/25/22 07:30 01/25/22 07:01 01/25/22 07:01 01/25/22 07:00 01/25/22 06:30 01/25/22 07:11 30 01/25/22 09:08 01/25/22 08:20 01/25/22 08:14 30 01/25/22 07:13 30 01/25/22 06:00 30 01/25/22 05:30 30 01/25/22 05:00 30 01/25/22 04:30 30 01/25/22 04:00 30 01/25/22 04:00 30 01/25/22 03:30 30 01/25/22 03:00 30 01/25/22 02:30 30 01/25/22 02:43 30 01/25/22 02:00 30 01/25/22 01:30 30 01/25/22 01:00 30 01/25/22 00:30 30 01/25/22 00:00 30 01/24/22 23:30 30 01/24/22 23:00 30 01/25/22 00:00 30 Lab & Micro Results (Past 24 Hours) RBC 2.93 M/uL (3.93-5.22) L 01/25/22 WBC 8.13 K/ul (4.8-10.8) 01/25/22 Hgb 8.6 g/dl (12.0-16.0) L 01/25/22 Hct 26.4 % (34.1-44.9) L 01/25/22 MCV 90.1 fL (80.0-100.0) 01/25/22 MCH 29.4 pg (25.0-34.0) 01/25/22 MCHC 32.6 g/dL (32.0-36.0) 01/25/22 RDW Standard Deviation 45.9 fL (36.4-46.3) 01/25/22 RDW Coefficient of Variation 14.0 % (11.5-14.5) 01/25/22 Plt Count 158 K/uL (130-400) 01/25/22 MPV 9.4 fL (9.4-12.3) 01/25/22 Neutrophils (%) (Auto) 78.1 % 01/25/22 Lymphocytes (%) (Auto) 9.2 % 01/25/22 Monocytes # (Auto) 0.94 K/uL (0.24-0.82) H 01/25/22 Eosinophils # (Auto) 0.03 K/uL (0-0.50) 01/25/22 Immature Granulocyte % (Auto) 0.5 % 01/25/22 Neutrophils # (Auto) 6.35 K/uL (1.4-6.5) 01/25/22 Lymphocytes # (Auto) 0.75 K/uL (1.2-3.4) L 01/25/22 Monocytes # (Auto) 0.94 K/uL (0.24-0.82) H 01/25/22 Eosinophils # (Auto) 0.03 K/uL (0-0.50) 01/25/22 Basophils # (Auto) 0.02 K/uL (0-0.2) 01/25/22 Immature Granulocyte # (Auto) 0.04 K/uL (0.00-0.02) H 01/25 Na 137 mmol/L (136-145) 01/25/22 K 4.2 mmol/L (3.5-5.1) 01/25/22 Cl 107 mmol/L (98-107) 01/25/22 CO2 26 mmol/L (21-32) 01/25/22 Anion Gap 4 (3-11) 01/25/22 BUN 17 mg/dl (6-23) 01/25/22 Creatinine 1.08 mg/dl (0.6-1.2) 01/25/22 Estimated GFR ( Amer) 55.0 ml/min 01/25/22 Estimated GFR (Non-Af Amer) 47.4 ml/min 01/25/22 BUN/Creatinine Ratio 15.7 (10-20) 01/25/22 Glu 94 mg/dl (70-99(Fasting)) 01/25/22 Ca 8.0 mg/dl (8.5-10.1) L 01/25/22 Phosphorus Level 2.9 mg/dl (2.5-4.9) 01/25/22 Mg 2.1 mg/dl (1.7-2.4) 01/25/22 04:37 Calcium Level 8.0 mg/dl (8.5-10.1) L 01/25/22 04:37 Diagnostic Findings (Past 24 Hours) Brain MRI 01/24/22 09:39 MR BRAIN WO/W CON HISTORY: 81 years-old Female R/O seizure, AMS, acute seizure-like activity. COMPARISON: Head CT 01/23/2022 TECHNIQUE: Multiplanar multisequence MRI of the brain was obtained both with and without the use of 5 cc Gadavist. FINDINGS: R[employer] Backer localizer images demonstrate no gross extracranial abnormality. There are a few scattered subcentimeter foci of restricted diffusion within the posterior right parietal lobe, left occipital and posterior left temporal lobes. Equivocal punctate focus of the left cerebellum and superior left frontal lobe. These larger foci demonstrate decreased signal on the ADC map with subtle areas of slightly increased FLAIR signal. No acute or subacute territorial infarct. There is a 9 mm cortically based area of increased T2 and FLAIR signal within the lateral left temporal lobe, image 14 series 8 with decreased signal on the ADC map. This portion of the brain parenchyma is not well evaluated on the diffusion-weighted series secondary to artifact. The medial temporal lobes appear normal. No abnormal intra-axial or extra-axial enhancement identified. The postcontrast images however are motion degraded. Skull, orbits and soft tissues are unremarkable. Trace mastoid effusions. Mild to moderate mucosal thickening of the paranasal sinuses. Leftward bowing and spurring of the nasal septum. IMPRESSION: 1. Subtle subcentimeter foci of restricted diffusion within the posterior right parietal, superior left frontal, left occipital and posterior temporal lobes are suggestive of tiny acute or subacute infarcts. 2. 9 mm focus of increased T2/FLAIR signal within the lateral left temporal lobe is not well visualized on the diffusion-weighted series and may represent an additional acute or subacute infarct versus seizure focus. 3. No abnormal enhancement. 4. Involutional changes with mild chronic microvascular ischemic disease. ACT 112: Negative or not required by law. The above report was generated using voice recognition software. It may contain grammatical, syntax or spelling errors. Dictated: 01/24/2022 1:58 PM Transcribed: 01/24/2022 2:35 PM Jes [id number] [facility] Electronically signed by: Nasim Rubio M.D. 01/24/2022 3:41 PM KUB X-Ray 01/24/22 11:04 KUB CLINICAL HISTORY: MRI clearance COMPARISON STUDY: CT of the abdomen and pelvis September 14, 2020. FINDINGS: Tip of nasogastric tube projects over the pylorus. Bowel gas pattern is normal. No contraindication to MRI is noted. Moderate amount of stool is noted. Calcified fibroids are present. IMPRESSION: No contraindication to MRI within the abdomen or pelvis. ACT 112: Negative or not required by law. Electronically signed by: Dante Justice M.D. 01/24/2022 3:32 PM Carotid Doppler Study 01/25/22 00:00 BILATERAL CAROTID DOPPLER STUDY HISTORY: Altered mental status with recent stroke. COMPARISON: Brain MRI 01/24/2022. TECHNIQUE: Real-time, grayscale, and color Doppler sonography of the carotid arteries was performed. Imaging reviewed in the transverse and longitudinal planes. All measurements were calculated based on NASCET criteria. FINDINGS: Antegrade flow is seen in the left vertebral artery. The right carotid and vertebral arteries were not assessed due to the patient's central line. The peak systolic velocity within the left ICA is 94. The left systolic ratio is 1.4. IMPRESSION: 1. No hemodynamically significant stenosis seen within the left carotid arteries. 2. The right carotid arteries were not evaluated due to the patient's indwelling central line. ACT 112: Negative or not required by law. Electronically signed by: Karlos Amanda M.D. 01/25/2022 9:44 AM I & O Totals 24 Hours 01/24/22 01/25/22 01/26/22 06:59 06:59 06:59 Intake Total 4527.463 / 4527.463 3543.126 / 3543.126 Output Total 746 / 746 1400 / 1400 Balance 3781.463 / 3781.463 2143.126 / 2143.126 Cumulative 11/21/21 10:08 thru 01/25/22 06:10 Intake Total 8070.589 Output Total 2146 Balance 5924.589 RT Ventilator Mngmt (Last Documented) Ventilator Ordered Settings Ventilator Support Mode Pressure Control 01/25/22 08:14 Respiratory Rate 20 01/25/22 09:00 Ventilator Tidal Volume 300 01/25/22 07:11 Setting Minute Ventilation 5.3 01/25/22 07:11 Ventilator Positive Pressure 5 01/25/22 08:14 Support Setting Positive End Expiratory 5 01/25/22 08:14 Pressure Fraction of Inspired Oxygen 30 01/25/22 08:14 Peak Inspiratory Flow 27 01/25/22 02:43 Machine Comment changes by SHANICE Beyer 01/24/22 00:47 Ventilator - PT Measurements Respiratory Rate 20 Exhaled Tidal Volume 360 Minute Ventilation 5.3 Peak Inspiratory Airway 11 Pressure Plateau Pressure 13.7 Respiratory Cycle Inspiratory: 1:3.2 Expiratory Ratio Inspiratory Phase Time 0.9 End-Tidal CO2 32 Static Lung Compliance 34.48 Dynamic Lung Compliance 60.00 Normal Static Lung Compliance 49.00 Patient Measurements Comment pt asleep/sedated comfortably on the ventilator Resident Activity Tracking Resident Involvement: Resident Care Provided Care Provided: Adult Hospital Medicine
--- NOTE | 2022-01-25 08:19 | Urology Progress Note ---
Date of Service January 25, 2022 Assessment & Plan (1) Renal mass: Plan: progressing after nephrectomy and questionable seizure - hope for extubation today - labs and exam ok - appreciate critical care assistance Admission and Anticipated Discharge Date Admission Date: January 23, 2022 Subjective Still intubated, however on a weaning trial now and much more interactive and responding to verbal commands MRI yesterday failed to show any definitive cerebral pathology Labs are stable Creatinine appropriate, hemoglobin decreased slightly but not significant Physical Exam Physical Exam: intubated - but responding to activity incisions appropriate urine clear abd soft Results & Data ([facility]) Vital Signs (Past 12 Hours) Vital Signs Temp Pulse Resp BP Pulse Ox O2 Del Method FiO2 01/25/22 07:11 97 H 19 96 30 01/25/22 07:13 Mechanical Vent 30 01/25/22 06:00 76 16 117/68 99 Mechanical Vent 30 01/25/22 05:30 81 17 99 Mechanical Vent 30 01/25/22 05:00 84 16 146/71 H 100 Mechanical Vent 30 01/25/22 04:30 74 16 99 Mechanical Vent 30 01/25/22 04:00 36.6 C 80 16 144/82 H 100 Mechanical Vent 30 01/25/22 04:00 30 01/25/22 03:30 71 16 100 Mechanical Vent 30 01/25/22 03:00 77 16 141/79 H 98 Mechanical Vent 30 01/25/22 02:30 71 16 100 Mechanical Vent 30 01/25/22 02:43 71 16 99 30 01/25/22 02:00 76 16 123/68 96 Mechanical Vent 30 01/25/22 01:30 74 16 99 Mechanical Vent 30 01/25/22 01:00 87 19 139/72 100 Mechanical Vent 30 01/25/22 00:30 85 17 99 Mechanical Vent 30 01/25/22 00:00 36.9 C 77 16 119/74 100 Mechanical Vent 30 01/24/22 23:30 73 16 99 Mechanical Vent 30 01/24/22 23:00 86 16 128/79 96 Mechanical Vent 30 01/24/22 22:30 91 H 20 131/76 92 Mechanical Vent 30 01/24/22 22:00 96 H 21 127/73 94 Mechanical Vent 30 01/24/22 21:30 90 17 124/81 93 Mechanical Vent 30 01/24/22 21:00 78 16 121/60 95 Mechanical Vent 30 01/24/22 20:30 74 16 94 Mechanical Vent 30 01/25/22 00:00 30 01/24/22 22:06 95 H 20 96 30 PG Care Time/CCT Total # of Minutes Spent Total Time Spent with Patient: Total time spent is greater than 50% in coordination of care (as documented) at patient's floor/unit and/or counseling patient: Coding Level of Care Code None Diagnoses Renal mass N28.89
[2022-01-25] MEDS: HEPARIN SOD 5,000 UNIT/0.5 ML VIAL SC SCH ×2 (08:41→20:05)
[2022-01-25] MEDS ORDERED: IPRATROPIUM BROMIDE/ALBUTEROL respimat INH INH PRN (09:25)
[2022-01-25] MEDS ORDERED: IPRATROPIUM BROMIDE HFA INHALER INH PRN (09:27)
[2022-01-25] MEDS ORDERED: ALBUTEROL HFA 8 GM INHALER INH PRN (09:27)
--- NOTE | 2022-01-25 09:46 | Ultrasound Report ---
BILATERAL CAROTID DOPPLER STUDY HISTORY: Altered mental status with recent stroke. COMPARISON: Brain MRI 01/24/2022. TECHNIQUE: Real-time, grayscale, and color Doppler sonography of the carotid arteries was performed. Imaging reviewed in the transverse and longitudinal planes. All measurements were calculated based on NASCET criteria. FINDINGS: Antegrade flow is seen in the left vertebral artery. The right carotid and vertebral arteries were not assessed due to the patient's central line. The peak systolic velocity within the left ICA is 94. The left systolic ratio is 1.4. IMPRESSION: 1. No hemodynamically significant stenosis seen within the left carotid arteries. 2. The right carotid arteries were not evaluated due to the patient's indwelling central line. ACT 112: Negative or not required by law. Electronically signed by: Karlos Amanda M.D. 01/25/2022 9:44 AM
[2022-01-25] MEDS: levETIRAcetam 1,000 MG in 0.9 % SODIUM CHLORIDE 100 ML IV SCH (09:51)
[2022-01-25] MEDS: PANTOprazole 40 MG in SYRINGE 0 ML IV SCH (09:52)
--- NOTE | 2022-01-25 09:54 | Pharmacy Report ---
Pharmacy Glycemic Sign Off Nt - Date of Service January 25, 2022 - Assessment & Plan ASSESSMENT: * Patient is not diabetic. No insulin required yesterday. Novolog currently at looser than weight-based moderate stress estimate. * Discussed on ICU rounds - OK for pharmacy to sign off PLAN FOR INPATIENT GLYCEMIC CONTROL: No changes needed to current regimen. * Continue NovoLog per scale ACHS/Q6hrs while NPO * Goal range = 110-140 mg/dl * CF = 45 mg/dl/unit * CR = 1 unit for ever 15 g CHO consumed * Pharmacy is signing off of glycemic consult and will no longer be making adjustments to inpatient regimen. Please feel free to re-consult if needed. Thank you.
--- NOTE | 2022-01-25 10:47 | Billing Data ---
Date of Service January 25, 2022 Coding Level of Care Code 49353 Subseq Hosp Care Lvl 3
[2022-01-25] MEDS ORDERED: IPRATROPIUM BROMIDE HFA INHALER INH SCH (11:00)
[2022-01-25] MEDS ORDERED: ALBUTEROL HFA 8 GM INHALER INH SCH (11:00)
--- NOTE | 2022-01-25 12:07 | Neurology Progress Note ---
Date of Service January 25, 2022 Assessment & Plan (1) Seizure: (2) Stroke: Plan New onset seizures following nephrectomy for renal cell carcinoma on January 23. Loaded with IV Keppra, no further seizure episodes. Patient has been extubated from mechanical ventilator. She remains mildly encephalopathic but has a grossly nonfocal neurological examination. Brain MRI did reveal multifocal small ischemic infarcts potentially consistent with embolic or watershed phenomena. Patient dosage of Keppra has been reduced to 500 mg IV every 12 hours in light of reduced creatinine clearance. Would continue with Keppra 500 mg IV every 12 hours for the time being, plan to transition to tablets when medically appropriate. Given that the MRI did reveal a potential seizure focus localizing to the left temporal lobe, I would recommend continuing with Keppra for the time being. Patient's stroke would be considered cryptogenic although occurred in the perioperative timeframe, and may have been associated with an episode of hypotension (watershed). No obvious embolic source. Consider obtaining outpatient 30-day cardiac monitoring. At this point, I do not object to use of an anticoagulant for this patient for medical indications such as DVT prophylaxis if indicated. However, I do not see a specific neurologic indication for anticoagulation at this point in time. Admission and Anticipated Discharge Date Admission Date: January 23, 2022 Subjective Follow-up for seizure, encephalopathy No further convulsive episodes. Patient has been extubated from the mechanical ventilator. at bedside. She is lethargic, able to identify her and follow simple commands, otherwise no complaints. For the most part nonverbal, resting quietly, nonagitated. Brain MRI completed yesterday revealed several tiny acute to subacute infarcts in different vascular territories consistent with either an embolic or watershed event. A carotid ultrasound was unremarkable although unable to assess the right carotid due to indwelling central line. Review of Systems Review of Systems: Unobtainable due to cognitive status Results & Data ([facility]) Vital Signs (Past 12 Hours) Vital Signs Temp Pulse Resp BP Pulse Ox O2 Del Method O2 Flow Rate 01/25/22 09:00 89 20 93 Nasal Cannula 3 01/25/22 09:00 120/97 01/25/22 08:15 153/97 H 01/25/22 08:15 89 21 94 01/25/22 08:00 100 H 24 95 01/25/22 07:30 96 H 19 94 01/25/22 07:01 153/101 H 01/25/22 07:01 99 H 18 95 01/25/22 07:00 93 H 21 97 01/25/22 06:30 71 16 100 01/25/22 07:11 97 H 19 96 01/25/22 09:08 75 01/25/22 08:20 36.7 C 01/25/22 08:14 01/25/22 07:13 Mechanical Vent 01/25/22 06:00 76 16 117/68 99 Mechanical Vent 01/25/22 05:30 81 17 99 Mechanical Vent 01/25/22 05:00 84 16 146/71 H 100 Mechanical Vent 01/25/22 04:30 74 16 99 Mechanical Vent 01/25/22 04:00 36.6 C 80 16 144/82 H 100 Mechanical Vent 01/25/22 04:00 01/25/22 03:30 71 16 100 Mechanical Vent 01/25/22 03:00 77 16 141/79 H 98 Mechanical Vent 01/25/22 02:30 71 16 100 Mechanical Vent 01/25/22 02:43 71 16 99 01/25/22 02:00 76 16 123/68 96 Mechanical Vent 01/25/22 01:30 74 16 99 Mechanical Vent 01/25/22 01:00 87 19 139/72 100 Mechanical Vent 01/25/22 00:30 85 17 99 Mechanical Vent 01/25/22 00:00 36.9 C 77 16 119/74 100 Mechanical Vent 01/25/22 00:00 FiO2 01/25/22 09:00 01/25/22 09:00 01/25/22 08:15 01/25/22 08:15 01/25/22 08:00 01/25/22 07:30 01/25/22 07:01 01/25/22 07:01 01/25/22 07:00 01/25/22 06:30 01/25/22 07:11 30 01/25/22 09:08 01/25/22 08:20 01/25/22 08:14 30 01/25/22 07:13 30 01/25/22 06:00 30 01/25/22 05:30 30 01/25/22 05:00 30 01/25/22 04:30 30 01/25/22 04:00 30 01/25/22 04:00 30 01/25/22 03:30 30 01/25/22 03:00 30 01/25/22 02:30 30 01/25/22 02:43 30 01/25/22 02:00 30 01/25/22 01:30 30 01/25/22 01:00 30 01/25/22 00:30 30 01/25/22 00:00 30 01/25/22 00:00 30 Laboratory Results WBC 8.13, hemoglobin 8.6, hematocrit 26.4, platelet count 158, sodium 137, potassium 4.2, BUN 17, creatinine 1.08, glucose 94 Diagnostic Findings Brain MRI reveals several foci of restricted diffusion within the posterior right parietal, superior left frontal, left occipital, and posterior temporal lobes suggestive of tiny acute to subacute infarcts. There is a 9 mm focus of increased T2/flair signal within the lateral left temporal lobe that may be consistent with a subacute to acute infarct versus seizure focus, not well visualized on diffusion weighted sequences. No abnormal enhancement. I independently reviewed these images and was able to identify the above findings as described by the interpreting radiologist. An echocardiogram completed today was negative for cardioembolic source. Exam (Neuro) Physical Exam: As above, patient is awake, lethargic to obtunded, minimally responsive, will identify her at bedside and follow simple commands. For the most part she is nonverbal. Pupils equal round reactive to light, extraocular movements intact, no gaze preference or nystagmus. No facial droop. Tongue and palate midline. Moves all limbs symmetrically, muscle tone normal throughout, no hemiparesis or paraparesis. No abnormal movements. Coding Level of Care Code 69684 Subseq Hosp Care Lvl 2 Diagnoses Seizure R56.9 Stroke I63.9
[2022-01-25] MEDS: ACETAMINOPHEN 500 MG TAB PO PRN ×2 (14:25→20:20)
[2022-01-25] MEDS ORDERED: Nursing to Pharmacy Communication SCH (17:15)
[2022-01-25] MEDS: propofoL 1,000 MG/100 ML VIAL IV SCH (18:34)
[2022-01-25] MEDS: levETIRAcetam 500 MG in 0.9 % SODIUM CHLORIDE 100 ML IV SCH (20:04)
[2022-01-25] MEDS ORDERED: ALBUTEROL 0.083% NEBU SOLN 3 ML VIAL ONE (23:51)
[2022-01-25] MEDS ORDERED: ALBUTEROL 0.083% NEBU SOLN 3 ML VIAL NEB PRN (23:59)
[2022-01-26] MEDS: ACETAMINOPHEN 500 MG TAB PO PRN ×2 (00:27→07:10)
[2022-01-26] MEDS: LACTATED RINGER'S 1,000 ML IV SCH (00:27)
[2022-01-26 04:36] LABS: Basophils # (auto) 0.02 K/uL (0-0.2); Basophils % (auto) 0.3 %; Eosinophils # (auto) 0.05 K/uL (0-0.50); Eosinophils % (auto) 0.8 %; Hematocrit (blood only) 22.9 % (34.1-44.9); Hemoglobin 7.5 g/dl (12.0-16.0); Immature Granulocytes # (auto) 0.04 K/uL (0.00-0.02); Immature Granulocytes % (auto) 0.6 %; Mean Corpuscular Hemoglobin 29.6 pg (25.0-34.0); Mean Corpuscular Hgb Conc 32.8 g/dL (32.0-36.0); Mean Corpuscular Volume 90.5 fL (80.0-100.0); Mean Platelet Volume 9.4 fL (9.4-12.3); Neutrophils # (auto) 4.93 K/uL (1.4-6.5); Neutrophils % (auto) 74.3 %; Platelet Count 141 K/uL (130-400); RDW Coefficient of Variation 13.6 % (11.5-14.5); RDW Standard Deviation 45.4 fL (36.4-46.3); Red Blood Count 2.53 M/uL (3.93-5.22); White Blood Count 6.64 K/ul (4.8-10.8)
[2022-01-26 04:55] LABS: BUN Creatinine Ratio 14.9 (10-20); Calcium 7.9 mg/dl (8.5-10.1); Creatinine Clr Calc Pharmacy 31.3 ml/min; Est GFR (African American) 59.6 ml/min; Est GFR (Non-African American) 51.4 ml/min; Magnesium 1.9 mg/dl (1.7-2.4); Phosphorus 2.6 mg/dl (2.5-4.9); Potassium 3.8 mmol/L (3.5-5.1)
[2022-01-26] MEDS: ICU ELECTROLYTE REPLACEMENT PROTOCOL SCH (05:06)
[2022-01-26 05:09] LABS: RBC Morphology Unremarkable
[2022-01-26] MEDS: POTASSIUM CHLORIDE CRTAB 20 MEQ TABCR PO SCH ×2 (05:17→07:25)
[2022-01-26] MEDS: MAGNESIUM OXIDE 400 MG TAB PO SCH ×2 (05:17→07:25)
[2022-01-26] MEDS: PANTOprazole 40 MG in SYRINGE 0 ML IV SCH (07:25)
[2022-01-26] MEDS: levETIRAcetam 500 MG in 0.9 % SODIUM CHLORIDE 100 ML IV SCH (07:25)
[2022-01-26] MEDS: TAFLUPROST 0.0015% OPB SCH (07:26)
--- NOTE | 2022-01-26 07:40 | Critical Care Progress Note ---
Date of Service January 26, 2022 Assessment & Plan (1) Hypercapnic respiratory failure: Plan: Reason Critically Ill: 81-year-old female who was admitted to the hospital for elective laparoscopic nephrectomy (suspected renal cell carcinoma) and transferred to the ICU for postoperative acute hypercapnic respiratory failure, seizure-like activity. Now awake and alert with minimal O2 support. Awaiting downgrade from ICU. Sedation: None Analgesia: Tylenol as needed Neuro Encephalopathy/seizure: Resolved. Patient is now awake and alert. She is speaking without difficulty and following commands appropriately. * Per neurology recs: Keppra 500 mg, switch to p.o. * Also per neurology, no indication for anticoagulation * PT/OT evaluation ordered Cardiac Hypotension: Resolved. BP remains well controlled without antihypertensive intervention. She is not on antihypertensive therapy at home. * Trend vitals * Remove central line Respiratory Acute hypercapnic respiratory failure: Resolved, stable. Off mechanical ventilation >24 hours COPD: Though not formally diagnosed, COPD likely given patient's smoking history, presenting hypercapnia. Managing as COPD exacerbation without steroids or antibiotic therapy. * Saturating well on 1 L O2 via nasal cannula. Wean off as tolerated. * DuoNeb inhaler as needed for dyspnea. Encourage use of incentive spirometer. GI * Speech and swallow evaluation following. Appreciate updated recs * Stopping IV pantoprazole * Convert IV meds to p.o. * Heart healthy diet. RENAL/LYTES S/P nephrectomy: No evidence of NAKITA. Creatinine improved versus yesterday. Borges catheter removed yesterday. Urine output normal. No significant electrolyte derangements. * ICU electrolyte replacement protocol * IV Lasix 20 mg given x1 * No concerns at this time. ENDO * Glycemic management per ICU protocol HEME Acute anemia/ecchymosis: Nearly 2-point drop in hemoglobin over 48 hours. No obv ious source of bleeding. Ecchymosis of the right flank adjacent to incision scar present, although not concerning for hematoma. Patient is otherwise asymptomatic. * Transfusing pRBCs x1 unit. Repeat CBC x2 hours after transfusion complete * Continue SQ heparin ID No infection concerns at this point. * Antibiotic management deferred to urology. * Monitor fever curve. LINES/IV ACCESS * PIVs intact. DVT PROPHYLAXIS * Heparin gtt Thank you for allowing us to be part of this patient's care. Please refer to Dr. Wren's documentation for any further recommendations. (2) Encephalopathy: (3) Seizure: (4) Hypotension: Admission and Anticipated Discharge Date Admission Date: January 23, 2022 Supervising Physician Co-Signing Physician Notes Patient seen and examined. EMR reviewed. Discussed on multidisciplinary rounds and with family practice resident. Agree with assessment plan as noted above. The patient continues to have significant improvement in her neurological status. She is pending PT and OT evaluations but has been up to the chair and is tolerating a diet and oral medications. Her respiratory status continues to improve. She had no recurrent seizure activity. Bubble study demonstrated no evidence of right to left shunt. Appreciate neurology input. Continue Keppra and transition to oral. Patient has had a slight decrease in her hemoglobin. Its possible she could have a slow retroperitoneal bleed. Discussed with urology. We will hold off on imaging for now as she is hemodynamically stable. Give 1 unit of packed red blood cells and continue to follow hemoglobin and hematocrit. Patient is stable to transfer out of the intensive care unit. Critical care services will sign off at this point time. Feel free to contact us with [employer] pranay or concerns Subjective No acute events overnight. This morning, patient is awake and alert and speaking. She reports a lingering headache. Otherwise, she denies dizziness, shortness of breath, abdominal pain, or flank pain. She tolerated breakfast well without any issue. Review of Systems Review of Systems: All systems reviewed & are unremarkable except as noted in HPI & below Physical Exam Physical Exam: General: No acute distress HEENT: PERRLA. Normal conjunctiva, anicteric sclera. Oropharynx normal. Respiratory: Normal respiratory effort, CTABL. Cardiovascular: RRR without murmurs, gallops, or rubs. No pedal edema. GI: Soft abdomen with normal bowel sounds heard on auscultation. Nontender x4 quadrants. Skin: Right-sided flank ecchymosis. Skin is not indurated or tender to palpation. Incisions are clean, dry, and intact. Neuro: Alert and oriented x3. Results & Data Results & Data ([facility]) Vital Signs (Past 12 Hours) Vital Signs Temp Pulse Resp BP Pulse Ox O2 Del Method O2 Flow Rate 01/26/22 06:00 57 L 18 132/57 L 94 Nasal Cannula 1 01/26/22 05:49 64 19 134/59 L 96 Nasal Cannula 1 01/26/22 05:00 76 23 137/77 94 Nasal Cannula 1 01/26/22 04:00 36.8 C 61 15 120/51 L 95 Nasal Cannula 1 01/26/22 03:00 60 16 110/49 L 94 1 01/26/22 02:00 86 18 114/56 L 94 1 01/26/22 01:14 77 21 124/61 93 Nasal Cannula 1 01/26/22 00:01 87 17 151/54 H 88 L Nasal Cannula 1 01/26/22 00:00 78 29 H 93 1 01/26/22 00:00 72 01/25/22 23:00 36.4 C L 93 H 26 H 124/46 L Nasal Cannula 1 01/25/22 22:00 59 L 17 129/67 93 Nasal Cannula 1 01/25/22 21:00 79 16 132/63 94 Nasal Cannula 1 01/25/22 20:00 70 24 139/74 93 Nasal Cannula 1 01/25/22 20:00 63 Critical Care Results & Data Vital Signs (Past 12 Hours) Vital Signs Temp Pulse Resp BP Pulse Ox O2 Del Method O2 Flow Rate 01/26/22 09:00 63 21 94 01/26/22 09:00 136/60 01/26/22 08:01 94 H 19 94 01/26/22 08:01 118/57 L 01/26/22 08:00 79 27 H 92 01/26/22 07:00 68 20 91 01/26/22 07:00 126/51 L 01/26/22 06:45 70 23 92 01/26/22 08:20 Nasal Cannula 2 01/26/22 06:00 57 L 18 132/57 L 94 Nasal Cannula 1 01/26/22 05:49 64 19 134/59 L 96 Nasal Cannula 1 01/26/22 05:00 76 23 137/77 94 Nasal Cannula 1 01/26/22 04:00 36.8 C 61 15 120/51 L 95 Nasal Cannula 1 01/26/22 03:00 60 16 110/49 L 94 1 01/26/22 02:00 86 18 114/56 L 94 1 01/26/22 01:14 77 21 124/61 93 Nasal Cannula 1 01/26/22 00:01 87 17 151/54 H 88 L Nasal Cannula 1 01/26/22 00:00 78 29 H 93 1 01/26/22 00:00 72 01/25/22 23:00 36.4 C L 93 H 26 H 124/46 L Nasal Cannula 1 01/25/22 22:00 59 L 17 129/67 93 Nasal Cannula 1 Lab & Micro Results (Past 24 Hours) RBC 2.53 M/uL (3.93-5.22) L 01/26/22 WBC 6.64 K/ul (4.8-10.8) 01/26/22 Hgb 7.5 g/dl (12.0-16.0) L 01/26/22 Hct 22.9 % (34.1-44.9) L 01/26/22 MCV 90.5 fL (80.0-100.0) 01/26/22 MCH 29.6 pg (25.0-34.0) 01/26/22 MCHC 32.8 g/dL (32.0-36.0) 01/26/22 RDW Standard Deviation 45.4 fL (36.4-46.3) 01/26/22 RDW Coefficient of Variation 13.6 % (11.5-14.5) 01/26/22 Plt Count 141 K/uL (130-400) 01/26/22 MPV 9.4 fL (9.4-12.3) 01/26/22 Neutrophils (%) (Auto) 74.3 % 01/26/22 Lymphocytes (%) (Auto) 12.0 % 01/26/22 Monocytes # (Auto) 0.80 K/uL (0.24-0.82) 01/26/22 Eosinophils # (Auto) 0.05 K/uL (0-0.50) 01/26/22 Immature Granulocyte % (Auto) 0.6 % 01/26/22 Neutrophils # (Auto) 4.93 K/uL (1.4-6.5) 01/26/22 Lymphocytes # (Auto) 0.80 K/uL (1.2-3.4) L 01/26/22 Monocytes # (Auto) 0.80 K/uL (0.24-0.82) 01/26/22 Eosinophils # (Auto) 0.05 K/uL (0-0.50) 01/26/22 Basophils # (Auto) 0.02 K/uL (0-0.2) 01/26/22 Immature Granulocyte # (Auto) 0.04 K/uL (0.00-0.02) H 01/26 Red Blood Cell Morphology Unremarkable 01/26/22 Na 138 mmol/L (136-145) 01/26/22 K 3.8 mmol/L (3.5-5.1) 01/26/22 Cl 107 mmol/L (98-107) 01/26/22 CO2 26 mmol/L (21-32) 01/26/22 Anion Gap 5 (3-11) 01/26/22 BUN 15 mg/dl (6-23) 01/26/22 Creatinine 1.01 mg/dl (0.6-1.2) 01/26/22 Estimated GFR ( Amer) 59.6 ml/min 01/26/22 Estimated GFR (Non-Af Amer) 51.4 ml/min 01/26/22 BUN/Creatinine Ratio 14.9 (10-20) 01/26/22 Glu 83 mg/dl (70-99(Fasting)) 01/26/22 Ca 7.9 mg/dl (8.5-10.1) L 01/26/22 Phosphorus Level 2.6 mg/dl (2.5-4.9) 01/26/22 Mg 1.9 mg/dl (1.7-2.4) 01/26/22 04:20 Calcium Level 7.9 mg/dl (8.5-10.1) L 01/26/22 04:20 Prothromb Time International Ratio 1.0 (0.9-1.1) 01/26/22 09:1 1 I & O Totals 24 Hours 01/25/22 01/26/22 01/27/22 06:59 06:59 06:59 Intake Total 3543.126 / 3543.126 2541.667 / 2541.667 878.333 / 878.333 Output Total 1400 / 1400 1700 / 1700 Balance 2143.126 / 2143.126 841.667 / 841.667 878.333 / 878.333 Cumulative 11/21/21 10:08 thru 01/26/22 09:36 Intake Total 01677.589 Output Total 3846 Balance 7644.589 RT Ventilator Mngmt (Last Documented) Ventilator Ordered Settings Ventilator Support Mode Pressure Control 01/25/22 08:14 Respiratory Rate 21 01/26/22 09:00 Ventilator Tidal Volume 300 01/25/22 07:11 Setting Minute Ventilation 5.3 01/25/22 07:11 Ventilator Positive Pressure 5 01/25/22 08:14 Support Setting Positive End Expiratory 5 01/25/22 08:14 Pressure Fraction of Inspired Oxygen 30 01/25/22 08:14 Peak Inspiratory Flow 27 01/25/22 02:43 Machine Comment changes by SHANICE Beyer 01/24/22 00:47 Ventilator - PT Measurements Respiratory Rate 21 Exhaled Tidal Volume 360 Minute Ventilation 5.3 Peak Inspiratory Airway 11 Pressure Plateau Pressure 13.7 Respiratory Cycle Inspiratory: 1:3.2 Expiratory Ratio Inspiratory Phase Time 0.9 End-Tidal CO2 32 Static Lung Compliance 34.48 Dynamic Lung Compliance 60.00 Normal Static Lung Compliance 49.00 Patient Measurements Comment pt asleep/sedated comfortably on the ventilator Resident Activity Tracking Resident Involvement: Resident Care Provided Care Provided: Adult Hospital Medicine
[2022-01-26] MEDS: INSULIN ASPART PER UNIT SC SCH (08:11)
[2022-01-26] MEDS ORDERED: SODIUM CHLORIDE 0.9% 250 ML IV PRN ×2 (08:58→09:03)
--- NOTE | 2022-01-26 09:04 | Urology Progress Note ---
Date of Service January 26, 2022 Assessment & Plan (1) Renal mass: Plan - POD #3 s/p Robotic Assisted Laparoscopic Right Nephrectomy. - Postoperative course complicated by acute hypercapnic respiratory failure, seizure-like activity. - Remains in ICU, extubated yesterday 01/25. Awake and alert today. - Afebrile, vitals stable. On 2L NC. - Creatinine stable. - Hemoglobin dropped from 8.6 yesterday -7.[address] a/p w/o con but may not change course. Continue to monitor. Transfuse as felt necessary per ICU team. - Borges catheter removed yesterday. Voiding without issue, output appears adequate. Continue to monitor. - Likely downgrade from ICU later today. - Appreciate critical care assistance. Admission and Anticipated Discharge Date Admission Date: January 23, 2022 Supervising Physician Co-Signing Physician Notes Patient seen and examined Progressing appropriately Abdomen soft, minimal ecchymosis around the incisions Some ecchymosis around the left subclavicular locationnothing extensive Seems to be mentating relatively well Her hemoglobin has dropped overnightrather than image I think we will simply transfuse Transfer out of the ICU Hopeful that we will see continued progression over the next 24 to 48 hours Subjective Patient examined at bedside this AM in the ICU. Awake and alert. Feels tired and has a headache this morning, but otherwise denies any pain or discomfort. Denies CP/SOB. Reports she is voiding without issue on bedpan. Had a little of her breakfast, but reports decreased appetite. Review of Systems Constitutional: as per Subjective / HPI Genitourinary: as per Subjective / HPI Physical Exam Constitutional: no acute distress Respiratory: no respiratory distress On O2 via NC Gastrointestinal (Abdomen): Incisions well approximated, Dermabond intact. Ecchymosis noted to right lower abdominal incision. Abdomen is soft, nontender to palpation. Neurologic: awake Psychiatric: Orientation: alert and oriented to person Results & Data ([facility]) Vital Signs (Past 12 Hours) Vital Signs Temp Pulse Resp BP Pulse Ox O2 Del Method O2 Flow Rate 01/26/22 08:20 Nasal Cannula 2 01/26/22 06:00 57 L 18 132/57 L 94 Nasal Cannula 1 01/26/22 05:49 64 19 134/59 L 96 Nasal Cannula 1 01/26/22 05:00 76 23 137/77 94 Nasal Cannula 1 01/26/22 04:00 36.8 C 61 15 120/51 L 95 Nasal Cannula 1 01/26/22 03:00 60 16 110/49 L 94 1 01/26/22 02:00 86 18 114/56 L 94 1 01/26/22 01:14 77 21 124/61 93 Nasal Cannula 1 01/26/22 00:01 87 17 151/54 H 88 L Nasal Cannula 1 01/26/22 00:00 78 29 H 93 1 01/26/22 00:00 72 01/25/22 23:00 36.4 C L 93 H 26 H 124/46 L Nasal Cannula 1 01/25/22 22:00 59 L 17 129/67 93 Nasal Cannula 1 01/25/22 21:00 79 16 132/63 94 Nasal Cannula 1 PG Care Time/CCT Total # of Minutes Spent Total Time Spent with Patient: Total time spent is greater than 50% in coordination of care (as documented) at patient's floor/unit and/or counseling patient: Coding Level of Care Code None Diagnoses Renal mass N28.89
[2022-01-26] MEDS ORDERED: FUROSEMIDE INJ 20 MG/2 ML VIAL IV ONE (09:15)
[2022-01-26] MEDS: HEPARIN SOD 5,000 UNIT/0.5 ML VIAL SC SCH ×2 (09:18→20:44)
[2022-01-26 09:48] LABS: Partial Thromboplastin Ratio 1.1; Partial Thromboplastin Time 30.5 Seconds (21.0-31.0); Prothrombin Time 10.3 Seconds (9.0-12.0)
--- NOTE | 2022-01-26 09:56 | Billing Data ---
Date of Service January 26, 2022 Coding Level of Care Code 84868 Subseq Hosp Care Lvl 3
--- NOTE | 2022-01-26 10:59 | Electrocardiogram Report ---
Test Reason : Blood Pressure : / mmHG Vent. Rate : 069 BPM Atrial Rate : 069 BPM P-R Int : 130 ms QRS Dur : 072 ms QT Int : 342 ms P-R-T Axes : 070 042 046 degrees QTc Int : 366 ms Normal sinus rhythm Low voltage QRS Nonspecific T wave abnormality Abnormal ECG No previous ECGs available Confirmed by Ranjeet Coon ([id number]) on 01/26/2022 10:59:08 AM Referred By: Samuel Reyes Confirmed By:Samuel Coon
[2022-01-26] MEDS: levETIRAcetam 500 MG TAB PO SCH (20:46)
[2022-01-27 07:30] LABS: BUN Creatinine Ratio 13.6 (10-20); Calcium 8.5 mg/dl (8.5-10.1); Creatinine Clr Calc Pharmacy 26.6 ml/min; Est GFR (African American) 49.4 ml/min; Est GFR (Non-African American) 42.6 ml/min; Potassium 4.1 mmol/L (3.5-5.1)
[2022-01-27] MEDS: ACETAMINOPHEN 500 MG TAB PO PRN ×3 (07:42→23:49)
[2022-01-27] MEDS: levETIRAcetam 500 MG TAB PO SCH ×2 (07:43→22:59)
[2022-01-27] MEDS: HEPARIN SOD 5,000 UNIT/0.5 ML VIAL SC SCH ×2 (07:43→22:59)
[2022-01-27] MEDS: TAFLUPROST 0.0015% OPB SCH (07:44)
--- NOTE | 2022-01-27 10:30 | Urology Progress Note ---
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 -Recovery complicated by seizure-like activityMRI suggestive of possible lacunar mini strokes Uncertain the exact etiology of her issues in the recovery area, however, she does appear to be recovering extremely well Maintain hospitalization today Hemoglobin pendingtransfusion yesterday Continue ambulation Creatinine stable She continues to progress appropriately, will potentially plan for discharge home tomorrow Admission and Anticipated Discharge Date Admission Date: January 23, 2022 Subjective substantially improved this AM walking in the hallway with PT tolerating a diet Cr stable - hgb pending (transfusion yesterday) mentating well Physical Exam Physical Exam: ecchymosis of the left wrist, left chest, and under her extraction incision - all improving abs soft, non-tender, no rebound, no guarding Results & Data ([facility]) Vital Signs (Past 12 Hours) Vital Signs Temp Pulse Pulse Resp BP BP Pulse Ox 01/27/22 06:41 36.7 C 72 18 142/71 H 93 01/27/22 03:12 36.9 C 79 20 133/73 94 01/27/22 00:39 52 L 01/26/22 23:29 36.6 C 63 18 136/67 94 O2 Flow Rate 01/27/22 06:41 2 01/27/22 03:12 2 01/27/22 00:39 01/26/22 23:29 2 PG Care Time/CCT Total # of Minutes Spent Total Time Spent with Patient: Total time spent is greater than 50% in coordination of care (as documented) at patient's floor/unit and/or counseling patient: Coding Level of Care Code None Diagnoses Encephalopathy G93.40 Renal cell carcinoma C64.9
[2022-01-27 10:36] LABS: Hematocrit (blood only) 30.2 % (34.1-44.9); Mean Corpuscular Hemoglobin 29.8 pg (25.0-34.0); Mean Corpuscular Hgb Conc 33.1 g/dL (32.0-36.0); Mean Corpuscular Volume 89.9 fL (80.0-100.0); Mean Platelet Volume 10.3 fL (9.4-12.3); Platelet Count 198 K/uL (130-400); RDW Coefficient of Variation 13.9 % (11.5-14.5); RDW Standard Deviation 46.4 fL (36.4-46.3); Red Blood Count 3.36 M/uL (3.93-5.22); White Blood Count 5.74 K/ul (4.8-10.8)
[2022-01-27] MEDS ORDERED: CHLORASEPTIC 1.4% SOLN 180 ML BTL MT PRN (12:18)
[2022-01-27] MEDS: DOCUSATE SODIUM 100 MG CAP PO SCH ×3 (12:52→23:51)
[2022-01-27] MEDS: POLYETHYLENE (MIRALAX) 17 GM PACK PO SCH ×3 (12:52→23:49)
--- NOTE | 2022-01-28 08:09 | Urology Progress Note ---
Date of Service January 28, 2022 Assessment & Plan (1) Renal cell carcinoma: Plan: Status post right nephrectomy Progressing appropriately, however PT has recommended rehab stay Hopefully will reassess again today We will try to order two-step oxygenation test Hina Stearns for now, will have to touch base with neurology about long-term use and duration Should be surgically/medically stable for discharge home tomorrow Admission and Anticipated Discharge Date Admission Date: January 23, 2022 Subjective Continues to improve Mentation now seems to be at baseline Ambulated with assistance of PT outside of the room yesterday but also ambulated within the room on her own Urinating okay Small bowel movement Tolerating a diet Pain controlled Still on 2 L of nasal cannula O2 Physical Exam Physical Exam: Abdomen soft, nondistended, incisions appropriate Results & Data ([facility]) Vital Signs (Past 12 Hours) Vital Signs Temp Pulse Pulse Resp BP Pulse Ox O2 Del Method 01/28/22 07:57 36.8 C 64 16 146/74 H 92 Nasal Cannula 01/28/22 03:00 36.7 C 62 18 144/80 H 93 Nasal Cannula 01/27/22 22:15 61 01/27/22 23:00 36.8 C 60 18 104/70 96 Nasal Cannula 01/27/22 23:06 Nasal Cannula O2 Flow Rate 01/28/22 07:57 2 01/28/22 03:00 2 01/27/22 22:15 01/27/22 23:00 2 01/27/22 23:06 2 PG Care Time/CCT Total # of Minutes Spent Total Time Spent with Patient: Total time spent is greater than 50% in coordination of care (as documented) at patient's floor/unit and/or counseling patient: Coding Level of Care Code None Diagnoses Renal cell carcinoma C64.9
[2022-01-28] MEDS: levETIRAcetam 500 MG TAB PO SCH ×2 (09:16→19:50)
[2022-01-28] MEDS: POLYETHYLENE (MIRALAX) 17 GM PACK PO SCH ×2 (09:16→21:08)
[2022-01-28] MEDS: HEPARIN SOD 5,000 UNIT/0.5 ML VIAL SC SCH ×2 (09:16→19:51)
[2022-01-28] MEDS: TAFLUPROST 0.0015% OPB SCH (09:17)
[2022-01-28] MEDS: DOCUSATE SODIUM 100 MG CAP PO SCH ×2 (09:17→21:08)
[2022-01-28 09:29] LABS: BUN Creatinine Ratio 12.5 (10-20); Calcium 8.9 mg/dl (8.5-10.1); Creatinine Clr Calc Pharmacy 28.1 ml/min; Est GFR (African American) 52.6 ml/min; Est GFR (Non-African American) 45.4 ml/min; Potassium 3.9 mmol/L (3.5-5.1)
[2022-01-28] MEDS: ACETAMINOPHEN 500 MG TAB PO PRN ×2 (11:22→21:06)
[2022-01-28] MEDS: traMADol HCL 50 MG TABLET PO PRN ×2 (13:41→19:50)
[2022-01-28] MEDS ORDERED: IBUPROFEN 200 MG TAB PO STA (21:57)
--- NOTE | 2022-01-29 07:59 | Urology Progress Note ---
Date of Service January 29, 2022 Assessment & Plan (1) Renal cell carcinoma: Plan Status post right robotic nephrectomy Hopeful for discharge home today Will touch base with physical therapy to determine their final recommendations Touch base with neurology to determine duration of Keppra use Once these plans are finalized, I think she is suited for discharge home from a standpoint Admission and Anticipated Discharge Date Admission Date: January 23, 2022 Subjective No major issues overnight She did have some abdominal pain and focal headache Fortunately ibuprofen resolved both of these issues and she feels much better this morning On questioning, she feels that she is very comfortable doing self transfers and would be adequately situated to go home on her own We will touch base with physical therapy today to confirm that they are okay with this plan Physical Exam Physical Exam: Abdomen soft, nontender Incisions appropriate Mentating well Results & Data ([facility]) Vital Signs (Past 12 Hours) Vital Signs Temp Pulse Pulse Resp BP BP Pulse Ox 01/29/22 07:09 56 L 01/28/22 22:28 54 L 01/29/22 04:00 36.6 C 60 19 147/72 H 93 01/28/22 23:00 36.7 C 72 18 136/72 94 01/28/22 21:47 56 L 17 173/78 H 93 O2 Del Method 01/29/22 07:09 01/28/22 22:28 01/29/22 04:00 Room Air 01/28/22 23:00 Room Air 01/28/22 21:47 Room Air PG Care Time/CCT Total # of Minutes Spent Total Time Spent with Patient: Total time spent is greater than 50% in coordination of care (as documented) at patient's floor/unit and/or counseling patient: Coding Level of Care Code None Diagnoses Renal cell carcinoma C64.9
[2022-01-29] MEDS: HEPARIN SOD 5,000 UNIT/0.5 ML VIAL SC SCH (08:35)
[2022-01-29] MEDS: DOCUSATE SODIUM 100 MG CAP PO SCH (08:35)
[2022-01-29] MEDS: levETIRAcetam 500 MG TAB PO SCH (08:35)
[2022-01-29] MEDS: POLYETHYLENE (MIRALAX) 17 GM PACK PO SCH (08:36)
[2022-01-29] MEDS: TAFLUPROST 0.0015% OPB SCH (08:41)
--- NOTE | 2022-01-30 07:38 | Discharge Summary ---
Date of Service January 30, 2022 Admission HPI Per Admitting Provider 81-year-old female with a right lower pole, medial, and solid/enhancing renal mass concerning for renal cell carcinoma Presenting today for surgical removal Principal Diagnosis Renal cell carcinoma Discharge Data Allergies Allergy/AdvReac Type Severity Reaction Status Date / Time Iodinated Contrast Media Allergy Unknown hives Verified 01/23/22 09:13 povidone-iodine Allergy Unknown Rash Verified 01/23/22 09:13 [From Betadine] soap [From Betadine] Allergy Unknown Rash Verified 01/23/22 09:13 Consultations 01/23/22 14:31 Consult Child Welfare Caseworker Routine 01/24/22 06:46 Consult Neurology Routine Procedures Performed Operation Date: 01/23/22 10:50 Actual Procedures p Robotic Assisted Laparoscopic Nephrectomy Right(Right) - Ranjeet Reyes MD Ordered Studies 01/23/22 15:37 CT head/brain wo con Urgent 01/24/22 09:39 MR brain wo/w con Routine 01/25/22 US carotid doppler uni/ltd Routine Hospital Course (1) Renal cell carcinoma: Patient was admitted for right robotic radical nephrectomy She tolerated the surgery very well but it got 45 minutes after surgery and recovery room she started to exhibit seizure-like behavior After consultation with ICU team and anesthesia they elected to reintubate her and sedate her as well as obtain a neurology consult and begin Keppra empirically. She underwent EEG and other management including CT and MRI of the brain. She does have minute lacunar infarcts which were uncertain to be acute or subacutehe also appeared to have a focus of seizure activity. She resolves in terms of seizure activity within 24 hours and was ultimately extubated without issue. She did require transfusion at that time although there was no active site of bleeding identified. She remained hemodynamically stable throughout. She was subsequently transferred to the floor and continued to progress appropriately. Physical therapy assisted with initial rehabilitation, however she was self transferring and mobilized without difficulty on her own. She was tolerating a diet and moving her bowels. Her labs were all stable prior to discharge home. She was ultimately discharged home on postoperative day #5 in stable condition. Keppra was stopped prior to discharge home at the recommendation of neurology. She does take aspirin at home on a regular basis regardless. She will continue this. 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 Total Time Total Time Spent Total Time Spent (In Minutes): 45 Discharge Plan Discharge Items Patient Disposition: Home - Self-Care Reason For Visit: Renal Mass Discharge Diagnosis: renal cell carcinoma (chromophobe) Activity: Per Instructions section Lifting: Gradually increase as tolerated and No more than 25 pounds Bathing: No limitations Sexual Activity: When tolerated Exercise/Sports: Gradually increase as tolerated Driving/Machine Use: Do not drive until your follow up visit with Dr. Reyes Non-emergency contact: Urologist Call non-emergency contact if: you have any medication questions, your pain is concerning for you, you have a fever and your temperature is above 101.5 Follow-up/Referrals: Domingo Stern MD [Primary Care Provider] - (PLEASE CALL YOUR PRIMARY CARE [place] [facility] TO SCHEDULE A DISCHARGE FOLLOW-UP APPOINTMENT WITHIN 7-10 DAYS.) Diet: Regular Addtl Attending Provider Instructions: Please take all medications as prescribed and keep all follow-ups as scheduled. Please call our office at [phone] with any questions, concerns or need to reschedule appointments for any reason. We are happy to assist you. Recovering at home: We recommend having someone with you for the first few days after surgery to help care for you. It is okay to shower tomorrow. Please avoid swimming, bathing or using hot tub until incisions are well healed. Avoid driving until you are not requiring pain medication any further. Walk at least a few times a day. Increase your distance, as you feel able. Stairs in your home are okay. Please avoid strenuous or sexual activity until your follow-up. We recommend using stool softener (i.e. Colace) to prevent constipation and straining, especially the first two weeks post operatively. Call [facility] at [phone] if you experience: Chest pain or trouble breathing (call 361 or go to the hospital). Fever of 101F or higher Symptoms of infection at incision site, including redness or swelling, warmth, or bad-smelling drainage If you have catheter, and you notice: o Bloody urine or drainage that is dark red or has large clots (Please remember a small amount of blood is normal) o No drainage from the catheter for more than 6 hours o The catheter comes out of your bladder Pain that is not controlled with medicines Pending Studies at Discharge: No Stand-Alone Forms: My [facility] Medications and DC Order Prescriptions: New tramadol 50 mg tablet 50 mg PO Q6H PRN (Reason: pain) Qty: 20 0RF Continued mecobalamin (vitamin B12) 1,000 mcg tablet,chewable 1,000 mcg PO UD Label Comments: NOT EVERY DAY Zioptan (PF) 0.0015 % dropperette 1 drp ophthalmic (eye) HS Label Comments: BOTH Rx Instructions: administer at bedtime acetaminophen [Tylenol Arthritis Pain] 650 mg tablet extended release 650 mg PO Q8H PRN (Reason: Pain) calcium 600 mg Capsule 1,200 mg PO BID aspirin 325 mg Tablet 325 mg PO UD PRN (Reason: Pain) biotin 1 mg Tablet 1 mg PO QAM Discharge Orders: Discharge Order (Routine); Ordered 01/29/22 Ordered By: Ranjeet Reyes Admission Data Admit Date/Time: 01/23/22 12:39 Attending Provider: Ranjeet Reyes Admit Provider: Ranjeet Reyes Primary Care Provider: Domingo Stern Other Providers: John Blackwood ; Jayant Flores Seth D. ; Austin Vidal ; Syed Nesbitt ; Gonsalo Wren ; Joanna Johnston ; Pedro Beyer ; Kim Mayer ; Jayant Steve Other Interventions: Discharge Summary Assessment (RN) Last Done: 01/29/22 12:01 Coding Level of Care Code D/C DAY MANAGEMENT >30 MINS Diagnoses Renal cell carcinoma C64.9
== END 2022-01-29 13:09 | disposition home or self-care (01) | DRG 656 ==
LOC: ASU 08:11 → 3W 12:39 → PACUINP 14:18 → 1E 14:58 → 2N 01-26 13:25